=== PATIENT | female | born 1995 | race Caucasian/White ===

== ENCOUNTER → 2024-06-09 13:52 | Outpatient (REF) | payer BC, SELFPAY | LOC: PNTC 13:52 | PROVIDERS: ATTENDING PHYSICIAN Obstetrics & Gynecology | DX: Z36.0 Encounter for antenatal screening for chromosomal anomalies (principal); Z36.82 Encounter for antenatal screening for nuchal translucency | CPT/HCPCS: 76801; 76813 ==

== ENCOUNTER → 2024-07-07 13:27 | Outpatient (REF) | payer BC, SELFPAY | LOC: PNTC 13:27 | PROVIDERS: ATTENDING PHYSICIAN Obstetrics & Gynecology | DX: O99.210 Obesity complicating pregnancy, unspecified trimester (principal) | CPT/HCPCS: 76805 ==

== ENCOUNTER → 2024-08-03 13:27 | Outpatient (REF) | payer BC, SELFPAY | LOC: PNTC 13:27 | PROVIDERS: ATTENDING PHYSICIAN Obstetrics & Gynecology | DX: O99.212 Obesity complicating pregnancy, second trimester (principal); Z36.3 Encounter for antenatal screening for malformations | CPT/HCPCS: 76811; 76817 ==

== ENCOUNTER → 2024-08-07 09:59 | Outpatient (REF) | payer BC, SELFPAY | LOC: RCS 09:59 | PROVIDERS: ATTENDING PHYSICIAN Internal Medicine Cardiovascular Disease; FAMILY PHYSICIAN Nurse Practitioner Adult Health | DX: R00.2 Palpitations (principal) | CPT/HCPCS: 93306 ==

== ENCOUNTER 2024-10-08 15:11 | Inpatient (IN) | payer BC, SELFPAY ==
[2024-10-08] VITALS (8 sets, daily range): BP systolic 102–150; BP diastolic 53–93; BMI 36.5; BMI 33.0
--- NOTE | 2024-10-08 09:18 | ED.GENMED ---
History of Present Illness
<Veronique Chavis MD, Resident - Last Filed: 10/08/24 15:35>
General
Chief Complaint: Breathing Problem
Source: patient and family
Exam Limitations: none
Time Seen by Provider: 10/08/24 09:03
Nursing documentation reviewed up to this point in time: agreed with
History of Present Illness
History of Present Illness:
Ms. Leonarda Koroma is a P2 29-year-old female at 30 weeks gestation with a PMH notable for asthma, anxiety, IBS, GERD, and prophylactic cholecystectomy, who is presenting with shortness of breath, cough, and upper abdominal pain for 11 days.
Since September 28 she started feeling short of breath and and it has increased despite increased use of her rescue inhaler. She usually does not need her rescue inhaler. The shortness of breath is constant including when she is resting/sitting. Now
she sleeps with multiple pillows. She did not develop shortness of breath with her prior 2 pregnancies, only receiving a breathing treatment during a delivery.
She started coughing a few days ago, productive of yellow sputum. She was in contact with her [id number] who had a cough a few days before that. 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
She denies fevers or chills
She developed pain in the epigastric region above her gravid uterus that radiate bilaterally. The the abdominal pain is exacerbated by her coughing, and lingers after bouts of coughing. She has vomited 2-3 times a day after coughing. He denies
hematemesis.
She endorses calf cramps but no unilateral leg swelling or pain. She recalls she was concerned for a DVT in May, and there was no DVT found on workup.
She denies vaginal bleeding and endorses normal movement. She was concerned about her anterior placenta, and we reassured her that it is not a danger to the fetus.
Past History
<Veronique Chavis MD, Resident - Last Filed: 10/08/24 15:35>
Past History
ED Past Medical History: Asthma and Other (IBS, migraines)
ED Past Surgical History: Cholecystectomy and Other (wisdom teeth)
Social History
Tobacco: Non-smoker
Alcohol: Occasional
Drug: None
Personal: Single
Living: with family
Employment: Employed
Family History
Family History: Negative Diabetes
Review of Systems
<Veronique Chavis MD, Resident - Last Filed: 10/08/24 15:35>
Review of Systems
All Other Systems: ROS reviewed and negative except as documented in HPI and ROS
Phy Exam
<Veronique Chavis MD, Resident - Last Filed: 10/08/24 15:35>
Physical Exam
Physical Exam:
Lungs: Diffuse wheezes in all lung boyd, breathlessness with talking, wet cough
Heart: Tachycardic, normal rhythm
Abdomen: Tenderness to palpation in the right upper quadrant, no CVA tenderness bilaterally
Extremities: No pedal edema, no palpable cords
General: Moist mucous membranes
Course
<Veronique Chavis MD, Resident - Last Filed: 10/08/24 15:35>
Orders/Labs/Results
Orders:
Orders
10/08/24 09:15
Metoclopramide [Reglan] 10 mg IV NOW STA
10/08/24 09:18
Diphenhydramine [Benadryl] 25 mg IV NOW STA
10/08/24 10:11
Ipratropium/Albuterol Sulfate [Duoneb] 3 ml INH R NOW STA
10/08/24 10:13
Dexamethasone [Decadron] 10 mg PO NOW STA
10/08/24 10:14
0.9% Sodium Chloride 1000 ml [Nss] 1,000 ml IV BOLUS
10/08/24 10:15
Ipratropium/Albuterol Sulfate [Duoneb] 3 ml INH R NOW STA
Ipratropium/Albuterol Sulfate [Duoneb] 3 ml INH R NOW STA
10/08/24 11:10
Dexamethasone Pf [Decadron] 10 mg .ROUTE .STK-MED ONE
10/08/24 11:12
Dexamethasone Sod Phosphate [Decadron] 20 mg .ROUTE .STK-MED ONE
10/08/24 11:13
Dexamethasone Sod Phosphate [Decadron] 10 mg IV NOW STA
10/08/24 13:27
Urinalysis Reflex To Culture Urgent
10/08/24 14:09
COVID-19 Antigen Urgent
Source: Nasal Swab
Complete Blood Count/With Diff Urgent
Comprehensive Metabolic Panel Urgent
10/08/24 14:30
Admit/Transfer Patient As Directed
Co-Sign Provider:
Level of Care: Inpatient admission
Assign to:: Telemetry
Physician / Group: Braeden
Diagnosis: Acute Asthma Exacerbation
Reason for Telemetry: Arrhythmia
Date to Stop Telemetry: 10/11/24
Time to Stop Telemetry: 11:00
Reason for Hospitalization: steroids, nebs
Expected length of stay greater than two midnights?: Yes
ELOS- Estimated Length of Stay in days: 3
I certify the patient meets the requirements for IP care: Yes
PRN Pain Medication Management As Directed
May give lesser potent ordered pain med per pt: Yes
preference::
Protocol:: Medication orders for pain may be administered in a
manner that supports deferring to patient preference
when the pt is:
- Requesting an ordered lesser potent pain medication.
Least to most potent pain medications are defined
as: acetaminophen < NSAID < tramadol < opioids
(morphine, oxycodone, hydromorphone).
- Requesting a lesser dose of the same medication IF
ORDERED.
- Requesting a less intrusive route of administration
if both routes are prescribed by the provider (PO <
IV).
10/08/24 14:31
Code Status As Directed
Resuscitation Status: Full Code
10/08/24 14:37
US Limited Routine
Reason For Exam: Growth scan, Asthma Exacerbation
EDC?: 12/21/24
10/11/24 11:00
DC Protocol for Telemetry ONCE
Abnormal Lab Results
10/08/24
14:09
WBC 13.7 H 10^3/uL
(4.8-10.8)
RBC 3.66 L 10^6/uL
(4.20-5.40)
Hgb 11.1 L g/dL
(12.0-16.0)
Hct 32.4 L %
(37.0-47.0)
Abs Immat Gran (auto) 0.2 H 10^3/uL
(0-0.05)
Absolute Neuts (auto) 10.7 H 10^3/uL
(1.4-6.5)
Absolute Monos (auto) 0.9 H 10^3/uL
(0.1-0.6)
Immature Gran % 1.5 H %
(0-0.5)
Neutrophils % 77.6 H %
(42.2-75.2)
Lymphocytes % 10.9 L %
(20.5-51.1)
Chloride 108 H mmol/L
(98-107)
Carbon Dioxide 20 L mmol/L
(22-30)
Creatinine 0.4 L mg/dL
(0.6-1.0)
Glucose 60 L mg/dl
(70-99)
10/08/24 14:09
10/08/24 14:09
Vital Signs
Initial and Last Documented VS:
Initial Vital Signs
Temp Pulse Resp BP Pulse Ox
98.2 F 117 18 150/93 98
10/08/24 08:58 10/08/24 08:58 10/08/24 08:58 10/08/24 08:58 10/08/24 08:58
Last Documented Vital Signs
Temp Pulse Resp BP Pulse Ox
98.2 F 129 18 121/71 96
10/08/24 08:58 10/08/24 15:00 10/08/24 15:00 10/08/24 15:00 10/08/24 15:00
<Beto Juan, - Last Filed: 10/08/24 13:57>
Orders/Labs/Results
Orders:
Orders
10/08/24 09:15
Metoclopramide [Reglan] 10 mg IV NOW STA
10/08/24 09:18
Diphenhydramine [Benadryl] 25 mg IV NOW STA
10/08/24 10:11
Ipratropium/Albuterol Sulfate [Duoneb] 3 ml INH R NOW STA
10/08/24 10:13
Dexamethasone [Decadron] 10 mg PO NOW STA
10/08/24 10:14
0.9% Sodium Chloride 1000 ml [Nss] 1,000 ml IV BOLUS
10/08/24 10:15
Ipratropium/Albuterol Sulfate [Duoneb] 3 ml INH R NOW STA
Ipratropium/Albuterol Sulfate [Duoneb] 3 ml INH R NOW STA
10/08/24 11:10
Dexamethasone Pf [Decadron] 10 mg .ROUTE .STK-MED ONE
10/08/24 11:12
Dexamethasone Sod Phosphate [Decadron] 20 mg .ROUTE .STK-MED ONE
10/08/24 11:13
Dexamethasone Sod Phosphate [Decadron] 10 mg IV NOW STA
10/08/24 13:27
Urinalysis Reflex To Culture Urgent
10/08/24 14:09
COVID-19 Antigen Urgent
Source: Nasal Swab
Complete Blood Count/With Diff Urgent
Comprehensive Metabolic Panel Urgent
10/08/24 14:30
Admit/Transfer Patient As Directed
Co-Sign Provider:
Level of Care: Inpatient admission
Assign to:: Telemetry
Physician / Group: [facility]
Diagnosis: Acute Asthma Exacerbation
Reason for Telemetry: Arrhythmia
Date to Stop Telemetry: 10/11/24
Time to Stop Telemetry: 11:00
Reason for Hospitalization: steroids, nebs
Expected length of stay greater than two midnights?: Yes
ELOS- Estimated Length of Stay in days: 3
I certify the patient meets the requirements for IP care: Yes
PRN Pain Medication Management As Directed
May give lesser potent ordered pain med per pt: Yes
preference::
Protocol:: Medication orders for pain may be administered in a
manner that supports deferring to patient preference
when the pt is:
- Requesting an ordered lesser potent pain medication.
Least to most potent pain medications are defined
as: acetaminophen < NSAID < tramadol < opioids
(morphine, oxycodone, hydromorphone).
- Requesting a lesser dose of the same medication IF
ORDERED.
- Requesting a less intrusive route of administration
if both routes are prescribed by the provider (PO <
IV).
10/08/24 14:31
Code Status As Directed
Resuscitation Status: Full Code
10/08/24 14:37
US Limited Routine
Reason For Exam: Growth scan, Asthma Exacerbation
EDC?: 12/21/24
10/11/24 11:00
DC Protocol for Telemetry ONCE
Abnormal Lab Results
10/08/24
14:09
WBC 13.7 H 10^3/uL
(4.8-10.8)
RBC 3.66 L 10^6/uL
(4.20-5.40)
Hgb 11.1 L g/dL
(12.0-16.0)
Hct 32.4 L %
(37.0-47.0)
Abs Immat Gran (auto) 0.2 H 10^3/uL
(0-0.05)
Absolute Neuts (auto) 10.7 H 10^3/uL
(1.4-6.5)
Absolute Monos (auto) 0.9 H 10^3/uL
(0.1-0.6)
Immature Gran % 1.5 H %
(0-0.5)
Neutrophils % 77.6 H %
(42.2-75.2)
Lymphocytes % 10.9 L %
(20.5-51.1)
Chloride 108 H mmol/L
(98-107)
Carbon Dioxide 20 L mmol/L
(22-30)
Creatinine 0.4 L mg/dL
(0.6-1.0)
Glucose 60 L mg/dl
(70-99)
10/08/24 14:09
10/08/24 14:09
Vital Signs
Initial and Last Documented VS:
Initial Vital Signs
Temp Pulse Resp BP Pulse Ox
98.2 F 117 18 150/93 98
10/08/24 08:58 10/08/24 08:58 10/08/24 08:58 10/08/24 08:58 10/08/24 08:58
Last Documented Vital Signs
Temp Pulse Resp BP Pulse Ox
98.2 F 129 18 121/71 96
10/08/24 08:58 10/08/24 15:00 10/08/24 15:00 10/08/24 15:00 10/08/24 15:00
<Veronique Chavis MD, Resident - Last Filed: 10/08/24 15:35>
MDM/Problems Addressed
Differential Diagnosis Includes:
Shortness of breath:
Asthma exacerbation
PE
URI
Right upper quadrant pain:
Musculoskeletal strain associated with coughing
Appendicitis
MDM/Problems Addressed:
Hour-long breathing treatment with DuoNebs
Decadron 10 mg
monitoring with L&D
IV fluids
<Veronique Chavis MD, Resident - Last Filed: 10/08/24 15:35>
*Pulse Oximetry
SaO2: 98
Oxygen Mode of Delivery: Room air
*Floral [employer]er Interpretation
Rate: tachycardiac
Interpretation: normal
Rhythm: sinus
*Critical Care Note
Total Time (30-74mins, 75-104mins- exclusive of procedures): Not Applicable
<Beto Juan DO - Last Filed: 10/08/24 13:57>
*Pulse Oximetry
Patient hypoxic: no
ED Attending Note
<Veronique Chavis MD, Resident - Last Filed: 10/08/24 15:35>
-
Portions of this chart may have been created with voice recognition software.� Occasional wrong word or��sound alike� substitutions may have occurred due to the inherent limitations of voice recognition software.
<Beto Juan DO - Last Filed: 10/08/24 13:57>
ED Attending Note
Patient seen and examined by attending physician: Yes
I performed a history and physical exam of patient and discussed management with resident, I reviewed resident's note and agree with documented findings and plan of care.: Yes
ED Attending Note:
Note:
CHIEF COMPLAINT(S)
Difficulty breathing and stabbing abdominal pain with cough.
HISTORY OF PRESENT ILLNESS
The patient is a 29-year-old female who is experiencing difficulty breathing and stabbing pain in the right upper quadrant of the abdomen. She reports that these symptoms began recently and have been progressively worsening. The pain started as a
cough but now persists beyond the act of coughing and worsens with coughing. The patient describes the pain as being similar to being stabbed, located in the upper abdomen, and present even at rest. She denies any fever, hemoptysis, or chest pain
but reports that her asthma symptoms are not controlled with her current inhaler use, which provides relief for only an hour to an hour and a half. She also reports that her condition is reminiscent of her asthma, but with an increased frequency of
inhaler use. The patient is currently and mentions that this is her third .
The patient is concerned about the location of her placenta, having never experienced an anterior placenta before. She has had no bleeding, per vaginal discharge, or uterine contractions, and describes normal movements. Past issues with
pregnancies included receiving an epidural treatment during delivery.
The patient wears compression stockings and notes trace lower extremity edema. She expresses difficulty in getting full lung expansion. She also denies any smoking history.
PHYSICAL EXAM
General: Alert, no acute distress.
Skin: Warm, dry.
Head: Normocephalic, atraumatic.
Neck: Supple, trachea midline.
Eyes, Ears, Nose, Mouth, and Throat: Oral mucosa moist.
Cardiovascular: Regular rhythm, normal heart sounds.
Respiratory: Bilateral wheezing noted, but respiratory sounds are equal on both sides.
Gastrointestinal: Gravid uterus above the umbilicus, slight tenderness in the right upper quadrant but no acute distress on palpation.
Musculoskeletal: No negative Homans sign or palpable cords.
Neurological: Alert and oriented to person, place, time, and situation, No focal neurological deficit observed.
Psychiatric: Cooperative, appropriate mood and affect.
PLAN
1. Administer a series of breathing treatments to alleviate respiratory symptoms.
2. Prescribe corticosteroids to address airway inflammation.
3. Conduct monitoring to assess the heart rate and movement.
4. Consider administering intravenous fluids to assist with hydration.
5. Monitor improvement in breathing and overall well-being; connect with Obstetrics (OB) team as required.
6. Reassess treatment efficacy and symptoms; escalate care if there is no improvement.
DIFFERENTIAL DIAGNOSIS
The Differential Diagnosis includes, in no particular order and is not limited to:
1. Asthma exacerbation
2. Pulmonary embolism
3. Gastroesophageal reflux disease (GERD)
4. Costochondritis
5. Pneumonia
6. -related respiratory changes
7. Rib fracture or muscle strain
8. Bronchitis
9. Pleuritis
10. Anxiety-induced dyspnea
CARE-UPDATE
10/08/24 - 13:27
Patient continues to experience tachycardia and wheezing with no significant improvement reported. Steroids anticipated to provide relief with time. Decision made to admit for observation due to ongoing symptoms and patient history. Notifications to
OB and hospitalists initiated. Laboratory tests ordered for further evaluation.
Disposition:
SUMMARY OF ENCOUNTER
The patient, a 29-year-old female, presented to the emergency department with difficulty breathing and stabbing abdominal pain localized to the right upper quadrant. She reports the pain started with a cough and has progressively worsened.
Her current inhaler use for asthma is insufficient, providing relief for only an hour to an hour and a half. The patient presents with wheezing and tachycardia. Although the patient does not experience much improvement in symptoms despite initial
treatment, it is anticipated that as the effects of the steroids begin, her condition will improve. However, due to ongoing symptoms, she is being admitted for further observation and continued management with bronchodilators and corticosteroids. I
do not suspect pulmonary embolism given the fact that she is wheezing. the patient does not exhibit signs of preeclampsia. Obstetrics was consulted, with monitoring conducted, showing reassurance. The abdominal pain is suspected to result from
coughing, with no acute obstetrical complaints.
DISPOSITION
Admit
ASSESSMENT
1. Asthma exacerbation in the context of . 2. Abdominal pain likely due to coughing.
MANAGEMENT OF THE PATIENTS CARE WAS DISCUSSED WITH
Case was discussed with the Obstetrics team, who will follow the patient during her admission.
INDEPENDENT REVIEW OF LABS AND INTERPRETATION OF TESTS
My independent review of the patients condition leads me to anticipate improvement with continued steroid treatment and bronchodilation therapy.
MEDICAL DECISION MAKING
-Complexity of Data Reviewed: Chronic conditions affecting care include asthma and . Differential diagnosis considered was asthma exacerbation, pulmonary embolism, -related respiratory changes, and costochondritis.
-Data:
Category 3
Discussion of management with the Obstetrics team has been documented.
DIAGNOSIS
1. Asthma exacerbation (J45.901)
2. Cough-induced abdominal pain (R07.82)
Discharge Plan
Departure
Patient Disposition: Admit
Date of Disposition: 10/08/24
Time of Disposition: 13:31
Admit to: Med/Surg
Presentation/result/management discussed w/ accepting MD/DO: Hospitalist
Discharge Problem:
Acute asthma exacerbation, Third trimester
Interventions
Interventions:
*Risk Screen - Suicide Last Done: 10/08/24 08:58
*General Assessment Last Done: 10/08/24 11:14
*Neglect/Abuse Screening Last Done: 10/08/24 08:58
*ED- Fall Risk Assessment Last Done: 10/08/24 11:14
*ED COVID-19 Vaccine History Last Done: 10/08/24 11:14
ED- Cardiac Assessment Last Done: 10/08/24 10:00
ED- Pulmonary Assessment Last Done: 10/08/24 10:00
[2024-10-08] MEDS: NSS 1000 IV (10:51)
[2024-10-08] MEDS: DUONEB 3 ML INH ×5 (10:52→22:52)
[2024-10-08] MEDS: DECADRON 10 MG IV (11:13)
--- NOTE | 2024-10-08 14:10 | HPS.HSE ---
Family Physician
-
Family Physician: Yadira Lozano
Chief Complaint
-
Cough
History of Present Illness
Patient is a 29 y/o female past medical history of exercise-induced asthma, migraine headaches and GERD who presents with cough and shortness of breath. Patient reports ongoing symptoms for about 10 days. She has been using her rescue inhaler at
home but reports persistent shortness of breath. She reports cough is occasionally productive of yellow sputum. She reports not being able to sleep and she has been using multiple pillows to sit upright. She denies lower extremity edema. She
denies fevers.
Medical History
Past Medical History
Past Medical History: Reports Other
Additional Past Medical History:
Exercise-Induced Asthma
Migraine Headache
GERD
Irritable Bowel Syndrome
Past Surgical History: Reports Other
Additional Past Surgical History:
Cholecystectomy
[employer] [place] Teeth Extraction
Social History
Tobacco: Non-smoker
Alcohol: None
Family History
Family History: Not pertinent
Allergies / Home Medications
Allergies reflects when Allergies were last updated in [facility].
Home Medications with original date entered in [facility]
Allergy/Medication List:
Allergies
Allergy/AdvReac Type Severity Reaction Status Date / Time
No Known Drug Allergies Allergy Unknown Verified 10/08/24 09:01
Home Medications
albuterol sulfate 90 mcg/actuation aerosol inhaler 2 puff inhalation R [id number] PRN sob 10/08/24
aspirin 81 mg tablet 81 mg PO DAILY 10/08/24
Review of Systems
-
A 12 point ROS was completed and negative except as noted: Yes
Constitutional: Denies Fever or Chills
Respiratory: Reports See HPI
Physical Exam
Vital Signs
Vital Signs
Temp Pulse Resp BP Pulse Ox
98.2 F 107 17 113/73 97
10/08/24 08:58 10/08/24 11:15 10/08/24 11:15 10/08/24 11:14 10/08/24 11:15
Physical Exam
General: Comfortable, Conversant and Other (Frequent cough)
HEENT: Anicteric and Moist mucous membranes
Respiratory: Other (Diffuse wheezing and rhonchi)
Cardiac: S1/S2, Regular Rhythm and Tachycardia
GI: Soft and Other (Gravid uterus )
Rectal: Deferred by Provider
Musculoskeletal: No Clubbing, No Cyanosis and No Edema
Skin: Warm and Dry
Neuro: Awake, Alert, Oriented and Nonfocal/grossly intact
Psych: Calm
Laboratory Results
-
Laboratory Tests
10/08/24
14:09
WBC 13.7 H
Hgb 11.1 L
Hct 32.4 L
Plt Count 280
Sodium 136
Potassium 3.9
Chloride 108 H
Carbon Dioxide 20 L
BUN 7
Creatinine 0.4 L
Glucose 60 L
Data Reviewed
-
Lab Data: Labs Reviewed by me
Impression/Plan
-
Acute Asthma Exacerbation
-Check COVID swab
-Check CXR in setting of leukocytosis
-Continue Decadron 4mg IV Q12H
-Continue DuoNeb QID and PRN
-Continue Mucinex
Third Trimester
-Patient reports history of preeclampsia with prior pregnancies - Continue aspirin
-Consult OB
Mild Normocytic Anemia
-Start Vitamin with Iron
DVT proph: SC Heparin
Code Status: Full Code
[2024-10-08 14:25] LABS: Hematocrit 32.4 % (37.0-47.0); Hemoglobin 11.1 g/dL (12.0-16.0); Mean Corp Hgb Conc. 34.3 g/dL (33.0-37.0); Mean Corpuscular Volume 88.5 fL (81.0-99.0); Nucleated Red Blood Cells % 0 %; Platelet Count 280 10^3/uL (130-400); Red Cell Dist. Width 12.7 % (11.5-14.5)
[2024-10-08 14:42] LABS: ALT (SGPT) 18 U/L (0-35); AST (SGOT) 26 U/L (14-36); Albumin 3.7 g/dl (3.5-5.0); Alkaline Phosphatase 126 U/L (38-126); Blood Urea Nitrogen 7 mg/dl (7-17); Calcium 8.6 mg/dl (8.4-10.2); Carbon Dioxide 20 mmol/L (22-30); Chloride 108 mmol/L (98-107); Estimated Creatinine Clearance > 125 ml/min; Glucose 60 mg/dl (70-99); Potassium 3.9 mmol/L (3.5-5.1); Sodium 136 mmol/L (135-145); Total Protein 6.7 g/dl (6.3-8.2); eGFR > 60.00
--- NOTE | 2024-10-08 14:53 | CM ---
CM reviewed chart and met with pt bedside in ED. Lives with and children in 3 story home, several [place].
Independent in ADLs, personal care and ambulation at baseline. 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
PCP: Yadira Lozano
Pharmacy: [facility] Margarita Jhaveri
CM will continue to follow for discharge planning needs
[2024-10-08 17:04] LABS: Glucose - Point of Care 125 mg/dl (70-99)
--- NOTE | 2024-10-08 17:20 | CON.MD ---
Consultation - Medical
-
29yo @ 29.3wks [facility] 12/21/24 presented to the ER at the request of my office due to c/o RUQ pain and Cough/SOB requiring regular use of her rescue inhaler, 10+ times in a 24hr period. She states she has noticed progressively worsening symptoms
for over a week, to the point where she needed multiple pillows when she lies down due to SOB. The RUQ pain is associated with/exacerbated by her coughing. She denies Vb/LOF/Ctx, +FM.
Issues: 1. BMI 31 2. h/o PEC x2
PMHx: h/o MRSA, Obesity, Asthma, EBV @ 14y/o
PSHx:Cholecystectomy, D&C
POBHx: 08/2011: FT - PEC, 03/2017: FT - PEC, PPH
FHx: Dad- DM, Multiple Myeloma, Porphyria Sister-asthma
SHX: Neg x3
Meds: Baby ASA, Albuterol inhaler
All: NKDA
Vitals & Labs: see Below
Gen: nad, sitting up in bed, coughing intermittently
Abd: soft, nd, mild ttp in the mid right abdomen, gravid
FHT: 140/Mod/+A/-D
TOCO: no ctx
US 10/08/24: Single intrauterine in cephalic presentation. No evidence for placenta previa. The cervix appears long and closed. Amniotic fluid volume is within normal limits.
heart rate of 134 bpm.
measurements give an estimated gestational age of 30 weeks and 5 days, +/- 3 weeks. LMP percentile is 70%.
CXR: No focal consolidation, pleural effusion, or pneumothorax. The cardiomediastinal silhouette is normal. The osseous structures are unremarkable.
A/P: 29yo @ 29.3wks with Asthma Exacerbation
1. Asthma:- s/p Nebulizer treatment in ER however patient remains symptomatic so decision was made to admit
-CXR without evidence of pneumonia
-Mgmt per Hospitalist Team
2. OB: Reassuring FHT in the ER
-will do NSTs Q shift while admitted
-Growth US today showing appropriate measurements
-okay with nebulizer treatment and Dexamethasone
Consultation
-
Date/Time Consultation Requested: 10/08/24
Date/Time Consultation Performed: 10/08/24
Requesting Provider: Nathan Provider
Performing Provider: Omalley
Reason for Consultation: , asthma exacerbation
Vital Signs / Labs
-
Vital Signs and Labs:
Temp Pulse Resp BP Pulse Ox
98.7 F 133 18 115/84 96
10/08/24 17:13 10/08/24 17:13 10/08/24 17:13 10/08/24 17:13 10/08/24 17:13
10/08/24 14:09
10/08/24 14:09
AST/ALT: 18
10/08/24 10/08/24
14:09 16:59
WBC 13.7 H
RBC 3.66 L
Hgb 11.1 L
Hct 32.4 L
Abs Immat Gran (auto) 0.2 H
Absolute Neuts (auto) 10.7 H
Absolute Monos (auto) 0.9 H
Immature Gran % 1.5 H
Neutrophils % 77.6 H
Lymphocytes % 10.9 L
Chloride 108 H
Carbon Dioxide 20 L
Creatinine 0.4 L
Glucose 60 L
POC Glucose 125 H
COVID: NEG
[2024-10-08 17:27] LABS: COVID-19 Antigen Negative (Negative)
--- NOTE | 2024-10-08 18:05 | PTCARENOTE ---
1706 Pt received from ED via stretcher AAOX3. Pt accompanied by her mother. Pt ambulated from stretcher to standing scale and then bed.
[2024-10-08] MEDS: DUONEB INH (18:10)
--- NOTE | 2024-10-08 18:10 | W.PN.UPDATE ---
Update Note
Progress Note Update
I have seen and examined the patient.
I discussed the patient with the COUNTER STITCHER or PA's, their note was reviewed and I agree with the note.
This is a 29F, who is 30 weeks with a known history of asthma and GERD presenting with progressively worsening shortness of breath for the last 10 days, and cough productive of yellow sputum.
She noted swollen cervical lymph nodes about 2 weeks ago which has since resolved. She denies fevers. Her mother is at bedside and notes that she has had multiple upper respiratory issues in the last several months which have resolved on their
own. She also notes that she has had tachycardia since early in her and had a echocardiogram as an outpatient which was unremarkable.
On exam she is tachycardic to 135, she is well-appearing but exhibits conversational dyspnea, and occasional coughing, she has no swollen cervical lymph nodes, and tonsils appear normal, her lungs are wheezy and rhonchorous bilaterally. She has no
tenderness on my abdominal exam, has a gravid uterus. She has no lower extremity edema.
Labs were reviewed by me and are remarkable for an elevated white count of 13.7. Chest x-ray was reviewed by me and discussed with the radiologist and there appears to be some possible right-sided pneumonitis or pneumonia at the base.
Assessment and plan:
Acute asthma exacerbation�patient is not improved after nebs and steroids in the ED. We will continue Decadron and nebs. Given recurrent issues patient could potentially benefit from outpatient pulmonology eval.
Productive Cough - given white count and appearance of CXR, consider pneumonia or pneumonitis. COVID swab negative. Sputum is minimal so will hold off culture, but check strep and legionella. Empiric azithromycin. If she worsens will repeat CXR.
Due to will avoid CT but low suspicion for PE.
Tachycardia-likely worse in setting of acute illness. Previous echo unremarkable. If not improved with treatment can consider repeat echo.
Appreciate OB assistance.
Pt declines DVT ppx with subq heparin. Will place SCDs.
Comment:
[2024-10-08] MEDS: ZITHROMAX 500 MG PO (18:26)
[2024-10-08 19:58] LABS: Urine Character Clear (Clear)
[2024-10-08 20:16] LABS: Urine Red Blood Cell 0-2 /HPF (0-2); Urine Squamous Cell >30 /LPF (Few)
[2024-10-08] MEDS: MUCINEX 600 MG PO (20:48)
[2024-10-08] MEDS: TUMS CHEWABLE TABLET 400 MG PO (20:48)
--- NOTE | 2024-10-08 21:36 | PTCARENOTE ---
NST completed and printed. Baseline 125 BPM with accelerations, no contractions. C/o right upper side quadrant pain but said it has improved since coughing has subsided a bit but still present. made aware. No new orders at this time.
[2024-10-08] MEDS: DECADRON 4 MG IV (22:36)
[2024-10-09 03:06] VITALS: BP 102/64
[2024-10-09 06:41] LABS: Hematocrit 29.8 % (37.0-47.0); Hemoglobin 10.2 g/dL (12.0-16.0); Mean Corp Hgb Conc. 34.2 g/dL (33.0-37.0); Mean Corpuscular Volume 88.4 fL (81.0-99.0); Platelet Count 251 10^3/uL (130-400); Red Cell Dist. Width 12.6 % (11.5-14.5)
[2024-10-09 07:02] LABS: Blood Urea Nitrogen 6 mg/dl (7-17); Calcium 8.9 mg/dl (8.4-10.2); Carbon Dioxide 20 mmol/L (22-30); Chloride 110 mmol/L (98-107); Estimated Creatinine Clearance > 125 ml/min; Glucose 105 mg/dl (70-99); Potassium 4.4 mmol/L (3.5-5.1); Sodium 137 mmol/L (135-145); eGFR > 60.00
[2024-10-09] MEDS: DUONEB 3 ML INH ×4 (07:21→19:33)
[2024-10-09] MEDS: ASPIR LOW (ENTERIC COATED) 81 MG PO (07:45)
[2024-10-09] MEDS: PRENATAL PLUS 1 TABLET PO (07:45)
[2024-10-09] MEDS: MUCINEX 600 MG PO ×2 (07:45→21:37)
[2024-10-09 07:52] VITALS: BP 107/69
[2024-10-09] MEDS: DECADRON 4 MG IV ×2 (09:54→21:39)
[2024-10-09] MEDS: FLUSH (NSS) 2 FLUSH IV (09:56)
[2024-10-09 11:19] VITALS: BP 105/62
[2024-10-09 12:00] VITALS: BMI 33.1
--- NOTE | 2024-10-09 13:11 | W.PN.HOSP.TC ---
Today's Communication/Plan
-
routine EKG
maintain on steroids/neb therapy
continue abx
Assessment / Plan
Assessment / Plan
1. Acute asthma exacerbation
- Patient continues to have wheezing and dyspnea
- Maintain on IV Solu-Medrol 40 mg every 12 hours
- Continue on DuoNeb therapy
2. Possible pneumonitis/right lower lobe pneumonia
- Have nonproductive cough, which can also be present an asthma flare
- Maintained on azithromycin 500 mg daily -safe to take in third trimester
- Worsening leukocytosis likely from steroid use
3. Sinus tachycardia
- Combination of /inhaler therapy/possible pneumonia.
- VTE/PE in differential but have other explanation at this juncture. D-dimer of no benefit in
- Routine EKG ordered
- Blood pressure soft and cannot provide beta-blockade. Labetalol and metoprolol safer option if needed
4. Normocytic anemia
- close to baseline, monitor
5. NAG metabolic acidosis
- suspecting compensatory to resp alkalosis form /asthma flare up
- will check ABG if worsening
DVT PPX -heparin subq
Full code
Total time spent : 54 mins
Anticipated Discharge: 24 - 48 hours
Subjective/Interval History
-
Date of Service: October 09, 2024
continues to have shortness breath
not hypoxic
patient having fast heart rate and have some palpitation
Objective Data
-
Labs:
Laboratory Results
10/09/24
06:09
WBC 18.2 H
Hgb 10.2 L
Hct 29.8 L
Plt Count 251
Sodium 137
Potassium 4.4
Chloride 110 H
Carbon Dioxide 20 L
BUN 6 L
Creatinine 0.4 L
Glucose 105 H
Calcium 8.9
Vital Signs:
Vital Signs
Temp Pulse Resp BP Pulse Ox
98.5 F 122 17 105/62 99
10/09/24 11:19 10/09/24 11:19 10/09/24 11:19 10/09/24 11:19 10/09/24 11:19
I&O
10/08/24 10/09/24 10/10/24
06:59 06:59 06:59
Intake Total 0 / 2279
Balance 2279 / 2279
Review of Systems
-
Respiratory: Reports Trouble Breathing
Cardiac: Reports Palpitations
Abdomen/GI: Reports No Symptoms
Physical Exam
-
General: No Apparent Distress and Comfortable
HEENT: Negative Oxygen
Respiratory: Wheezes
Cardiac: Regular Rhythm, S1/S2 and Tachycardic; Negative Murmur or Rub
Musculoskeletal: No Edema
Neuro: Awake, Alert, Oriented, No Motor Deficits and Nonfocal/Grossly Intact
Psych: Calm
--- NOTE | 2024-10-09 14:17 | PTCARENOTE ---
NST at bedside. FHR 145 with +accelerations. Pt reports good movement. Denies contractions. Pt still c/o RUQ pain when coughing but states it is improving.
[2024-10-09 15:25] VITALS: BP 105/60
[2024-10-09] MEDS: ZITHROMAX 500 MG PO (17:30)
[2024-10-09 19:00] VITALS: BP 105/64
[2024-10-09] MEDS: TUMS CHEWABLE TABLET 400 MG PO (21:36)
--- NOTE | 2024-10-09 22:47 | W.PN.OBG.DWH ---
Today's Communication / Plan
-
cont steroids, abx
testing
asthma care per hospitalist
Assessment/Plan
-
29+ wks with asthma exacerbation-mgmt per hospitalist.
-on steroids, augmentin in case this is pneumonia
-reactive NST
Cont present care
Subjective Data
-
Pt was not able to be seen until this evening due to being involved in direct patient care for multiple urgent issues/deliveries on Labor and delivery unit throughout the day.
Pt seen and examined approx 10pm. Late entry note
Feeling like she is breathing better. HAs cough and muscular pain in upper abdomen when coughing.
Active mvmt
No other complaints. Denies fever.
Objective Data
-
Laboratory Results
10/09/24 06:09
10/09/24 06:09
Vital Signs
Temp Pulse Resp BP Pulse Ox
97.8 F 124 20 105/64 98
10/09/24 19:00 10/09/24 19:35 10/09/24 19:35 10/09/24 19:00 10/09/24 19:35
VSS afeb
cor regular rate
pulm: clear no R/R W
abd:soft NDNT fundus firm NT
ext no calf pain
--- NOTE | 2024-10-09 22:48 | PTCARENOTE ---
Dr. Hodges came to bedside to assess patient. Qshift NST completed, printed, and reviewed by MD. FHR 135 BPM with accelerations, no contractions.
[2024-10-09 23:00] VITALS: BP 106/63
[2024-10-10 03:35] VITALS: BP 101/57
[2024-10-10 04:43] LABS: Hematocrit 28.7 % (37.0-47.0); Hemoglobin 9.8 g/dL (12.0-16.0); Mean Corp Hgb Conc. 34.1 g/dL (33.0-37.0); Mean Corpuscular Volume 89.1 fL (81.0-99.0); Platelet Count 259 10^3/uL (130-400); Red Cell Dist. Width 12.6 % (11.5-14.5)
[2024-10-10 05:07] LABS: Blood Urea Nitrogen 7 mg/dl (7-17); Calcium 8.8 mg/dl (8.4-10.2); Carbon Dioxide 19 mmol/L (22-30); Chloride 110 mmol/L (98-107); Estimated Creatinine Clearance > 125 ml/min; Glucose 125 mg/dl (70-99); Potassium 4.2 mmol/L (3.5-5.1); Sodium 136 mmol/L (135-145); eGFR > 60.00
[2024-10-10 06:00] VITALS: BMI 33.0
[2024-10-10 07:00] VITALS: BP 110/71
[2024-10-10] MEDS: DUONEB 3 ML INH ×4 (07:25→20:24)
[2024-10-10] MEDS: MUCINEX 600 MG PO ×2 (07:47→20:46)
[2024-10-10] MEDS: PRENATAL PLUS 1 TABLET PO (07:47)
[2024-10-10] MEDS: ASPIR LOW (ENTERIC COATED) 81 MG PO (07:47)
[2024-10-10] MEDS: DECADRON 4 MG IV ×2 (10:21→22:31)
[2024-10-10] MEDS: ROBITUSSIN DM 10 ML PO (10:46)
[2024-10-10 11:00] VITALS: BP 124/77
--- NOTE | 2024-10-10 12:46 | W.PN.HOSP.TC ---
Today's Communication/Plan
-
Maintained on steroids
Robitussin for cough
Continue antibiotic
Assessment / Plan
Assessment / Plan
1. Acute asthma exacerbation - Improving
- Patient continues to have wheezing and dyspnea
- Maintain on IV Solu-Medrol 40 mg every 12 hours
- Continue on DuoNeb therapy
- Subjectively better although continues to have wheezing on exam. No need of oxygen.
- Difficulty taking deep breath and having cough. Robitussin added - safe in
2. Possible pneumonitis/right lower lobe pneumonia
- Have nonproductive cough, which can also be present an asthma flare
- Maintained on azithromycin 500 mg daily -safe to take in third trimester
- Worsening leukocytosis likely from steroid use
3. Sinus tachycardia
- Combination of /inhaler therapy/possible pneumonia.
- VTE/PE in differential but have other explanation at this juncture. D-dimer of no benefit in
- EKG showing sinus tachycardia.
- Blood pressure soft and cannot provide beta-blockade. Labetalol and metoprolol safer option if needed
4. Normocytic anemia
- close to baseline, monitor
5. NAG metabolic acidosis
- suspecting compensatory to resp alkalosis form /asthma flare up
- sodium bicarb pill x1
DVT PPX -heparin subq
Full code
Anticipated Discharge: 24 - 48 hours
Subjective/Interval History
-
Date of Service: October 10, 2024
No issues overnight
Patient breathing subjectively better
Continues to have wheezing
Not on o2
Objective Data
-
Labs:
Laboratory Results
10/10/24
04:27
WBC 19.2 H
Hgb 9.8 L
Hct 28.7 L
Plt Count 259
Sodium 136
Potassium 4.2
Chloride 110 H
Carbon Dioxide 19 L
BUN 7
Creatinine 0.4 L
Glucose 125 H
Calcium 8.8
Vital Signs:
Vital Signs
Temp Pulse Resp BP Pulse Ox
98.0 F 110 18 124/77 96
10/10/24 11:00 10/10/24 11:03 10/10/24 11:03 10/10/24 11:00 10/10/24 11:00
I&O
10/09/24 10/10/24 10/11/24
06:59 06:59 06:59
Intake Total 2280 / 2280 1020 / 1020
Balance 2280 / 2280 1020 / 1020
Review of Systems
-
Respiratory: Reports Trouble Breathing; Denies Wheezing
Cardiac: Reports No Symptoms
Abdomen/GI: Reports No Symptoms
Physical Exam
-
General: No Apparent Distress and Comfortable
HEENT: Negative Oxygen
Respiratory: Wheezes
Cardiac: Regular Rhythm, S1/S2 and Tachycardic; Negative Murmur or Rub
Musculoskeletal: No Edema
Neuro: Awake, Alert, Oriented, No Motor Deficits and Nonfocal/Grossly Intact
Psych: Calm
[2024-10-10] MEDS: SODIUM BICARBONATE 650 MG PO (13:21)
[2024-10-10 15:00] VITALS: BP 107/70
--- NOTE | 2024-10-10 15:15 | PTCARENOTE ---
NST at bedside reactive. FHR 140 with +accelerations/-decelerations. Pt reports good movement. Denies contractions.
[2024-10-10] MEDS: ZITHROMAX 500 MG PO (17:42)
[2024-10-10 19:00] VITALS: BP 120/69
--- NOTE | 2024-10-10 21:49 | W.PN.OBG.DWH ---
Today's Communication / Plan
-
Cont daily nst Q 8hr.
Assessment/Plan
-
29w5d admitted for exacerbation of asthma
- improving but still with wheezing
- duonebs, soumedrol IV
Questionable pneumonia-has been on azithromycin -safe in /doesn't cross placenta
Mgmt for asthma, pneumonia per hospitalist/IMed service.
29w5d- reactive NST/reassuring testing
Cont daily NST Q 8hr
Subjective Data
-
No OB complaints
Active mvmt
No LOF or bleeding.
Breathing is subjectively better. Thinks she is 'turning the corner'
Objective Data
-
Laboratory Results
10/10/24 04:27
10/10/24 04:27
Vital Signs
Temp Pulse Resp BP Pulse Ox
97.6 F 110 18 120/69 96
10/10/24 19:00 10/10/24 20:28 10/10/24 20:28 10/10/24 19:00 10/10/24 20:28
VSS afeb
abd: soft NDNT, fundus gravid NT
Ext: no calf pain or edema
[2024-10-10 23:00] VITALS: BP 109/66
[2024-10-11 03:00] VITALS: BP 111/74
--- NOTE | 2024-10-11 03:11 | PTCARENOTE ---
NST at bedside completed. Category 1 strip noted. Pt feels movement - no complaints at this time.
[2024-10-11 03:54] VITALS: BMI 32.9
[2024-10-11 06:07] LABS: Hematocrit 28.9 % (37.0-47.0); Hemoglobin 9.8 g/dL (12.0-16.0); Mean Corp Hgb Conc. 33.9 g/dL (33.0-37.0); Mean Corpuscular Volume 90.0 fL (81.0-99.0); Platelet Count 253 10^3/uL (130-400); Red Cell Dist. Width 12.8 % (11.5-14.5)
[2024-10-11 06:32] LABS: Blood Urea Nitrogen 8 mg/dl (7-17); Calcium 9.0 mg/dl (8.4-10.2); Carbon Dioxide 21 mmol/L (22-30); Chloride 110 mmol/L (98-107); Estimated Creatinine Clearance > 125 ml/min; Glucose 105 mg/dl (70-99); Potassium 4.3 mmol/L (3.5-5.1); Sodium 137 mmol/L (135-145); eGFR > 60.00
[2024-10-11] MEDS: DUONEB 3 ML INH ×2 (07:16→11:18)
[2024-10-11 07:25] VITALS: BP 119/52
[2024-10-11] MEDS: PRENATAL PLUS 1 TABLET PO (08:09)
[2024-10-11] MEDS: ASPIR LOW (ENTERIC COATED) 81 MG PO (08:09)
[2024-10-11] MEDS: MUCINEX 600 MG PO ×2 (08:09→20:58)
--- NOTE | 2024-10-11 08:50 | W.PN.HOSP.TC ---
Today's Communication/Plan
-
Continue IV steroids, bronchodilators, consult pulmonology
Assessment / Plan
Assessment / Plan
1. Acute asthma exacerbation
- Patient continues to have wheezing and dyspnea
- Maintain on IV Solu-Medrol 40 mg every 12 hours
- Continue on DuoNeb therapy
- Patient reports continued shortness of breath with coughing and wheezing today, consult pulmonology
2. Pneumonitis without pneumonia
- Chest x-ray negative for infiltrate or opacity
- Has nonproductive cough, which can also be present an asthma flare
- Maintained on azithromycin 500 mg daily for anti-inflammatory effects-safe to take in third trimester
- Worsening leukocytosis likely from steroid use
3. Sinus tachycardia
- Combination of /inhaler therapy
- VTE/PE in differential but have other explanation at this juncture. D-dimer of no benefit in
- EKG showing sinus tachycardia.
- Blood pressure soft and cannot provide beta-blockade. Labetalol and metoprolol safer option if needed
4. Normocytic anemia
- Close to baseline, monitor
5. NAG metabolic acidosis
- Suspecting compensatory to resp alkalosis form /asthma flare up
- Sodium bicarb pill x1
DVT PPX -heparin subq
Full code
Updated mom at bedside 10/11
Total time spent to see the patient on the floor, examine the patient, review data and lab results, discuss treatment plan with patient, nursing staff around 38 minutes.
Physical Exam
General: Appears to be breathing comfortably, no acute distress
HEENT: Normocephalic, Atraumatic, EOMI, MMM
Respiratory: Diffuse wheezing noted
No accessory muscle use
Cardiac: Normal S1/S2, tachycardic rate and Rhythm
GI: Soft, gravid, nontender, Nondistended, Normal Bowel Sounds
Extremities: No Clubbing, Cyanosis, or Edema
Neuro: Nonfocal/Grossly Intact
Anticipated Discharge: 24 - 48 hours
Subjective/Interval History
-
Date of Service: October 11, 2024
Patient complains of continued coughing, wheezing, and shortness of breath, same as yesterday. No nausea, no vomiting. No vaginal bleeding, no vaginal discharge. Reports normal movement. No fever.
Objective Data
-
Labs:
Laboratory Results
10/11/24
05:46
WBC 20.1 H
Hgb 9.8 L
Hct 28.9 L
Plt Count 253
Sodium 137
Potassium 4.3
Chloride 110 H
Carbon Dioxide 21 L
BUN 8
Creatinine 0.4 L
Glucose 105 H
Calcium 9.0
Vital Signs:
Vital Signs
Temp Pulse Resp BP Pulse Ox
98.1 F 125 18 119/52 98
10/11/24 07:25 10/11/24 07:25 10/11/24 07:25 10/11/24 07:25 10/11/24 07:25
I&O
10/10/24 10/11/24 10/12/24
06:59 06:59 06:59
Intake Total 1020 / 1020 1560 / 1560
Balance 1020 / 1020 1560 / 1560
[2024-10-11] MEDS: DECADRON 4 MG IV (09:53)
[2024-10-11 11:00] VITALS: BP 110/64
--- NOTE | 2024-10-11 11:51 | W.PN.OBG.DWH ---
Today's Communication / Plan
-
continue q8h NST
Assessment/Plan
-
Patient is a 29yo @ 29.6 admitted with an asthma exacerbation and questionable pneumonia
IUP @39.6
- continue q8h NST, NST reactive and reassuring
Asthma exacerbation/pneumonia
- continue solumedrol/duonebs
- continue azithromycin
- Pulmonology consult
- Management per primary team
Subjective Data
-
No OB complaints. Patient still wheezing. She is feeling about the same. She denies cramping, contractions, LOF or vaginal bleeding. +FM. She has some abdominal pain from coughing so much.
Objective Data
-
Laboratory Results
10/11/24 05:46
10/11/24 05:46
Vital Signs
Temp Pulse Resp BP Pulse Ox
98.1 F 125 18 119/52 97
10/11/24 07:25 10/11/24 11:22 10/11/24 11:22 10/11/24 07:25 10/11/24 11:22
General: well appearing
Abd: gravid, nontender to palpation
--- NOTE | 2024-10-11 12:30 | CON.PUL ---
Consultation
Consultation Request
Date/Time Consultation Requested: 10/11/24
Date/Time Consultation Performed: 10/11/24
Performing Provider: Lita
Reason for Consultation: Asthma
Medical History
-
History of Present Illness:
Patient is a 29-year-old female with previous history of lifelong asthma, migraines, reflux presenting with cough and shortness of breath. She notes that her symptoms have been ongoing for the past 10 days, using her rescue inhaler at home but
having persistent short of breath and wheezing. She has occasional cough with yellow sputum. She is having symptoms at night requiring multiple pillows to sleep upright. This is her third . Her previous 2 had no issues in terms of her
asthma. She has felt that she has needed multiple rounds of antibiotics for upper respiratory infections (up to 4 courses) throughout this . She has a history of childhood asthma, had been on albuterol in the past. She has never been on
controller medications. She had been well-controlled as an adult with using albuterol rarely and as needed. No prior PFTs for review. She does not regularly see a glue mixer for asthma. She has not noticed that her allergies or any other
confounding factor may be present during this versus her previous ones.
Her mother is concerned about tachycardia though she had an echocardiogram in the past 2 months that showed no underlying cardiomyopathy. She has had preeclampsia in the last 2 pregnancies but otherwise has no history of cardiac disease. She does
follow with Dr. Solomon as an OP.
Past Medical History
Past Medical History: Other (see list below)
Social History
Tobacco: Non-smoker
Alcohol: None
Drug: None
Family History
Family History: Reviewed & Not Pertinent
Allergies / Home Medications
Allergies
Allergy/AdvReac Type Severity Reaction Status Date / Time
No Known Drug Allergies Allergy Unknown Verified 10/08/24 09:01
Home Medications
�Medication �Instructions �Recorded �Confirmed �Last Taken �Type
albuterol sulfate 90 mcg/actuation 2 puff inhalation R Q6HPRN PRN sob 10/08/24 10/08/24 10/08/24 History
aerosol inhaler
aspirin 81 mg tablet 81 mg PO DAILY Blood Clot 10/08/24 10/08/24 Unknown History
Prevention/Tx
Review of Systems
-
History Source: Patient
All other systems: Negative unless noted
Vitals / Labs / Diagnostic Testing
Vital Signs
Temp Pulse Resp BP Pulse Ox
98.3 F 125 18 110/64 97
10/11/24 11:00 10/11/24 11:22 10/11/24 11:22 10/11/24 11:00 10/11/24 11:22
Lab Data
10/11/24 05:46
10/11/24 05:46
Microbiology
10/08/24 19:25 Urine Urine Culture - Final
10/08/24 19:25 Urine Legionella Urinary Antigen - Final
Negative for Legionella pneumophila Serogroup 1 antigen.
A negative result does not rule out the possiblity of
Legionella infection due to other serogroups or species of
Legionella. Clinical correlation is recommended.
10/08/24 19:25 Urine Streptococcus pneumoniae Antigen (M - Final
Positive for Strep pneumo Ag
Diagnostic Testing:
Physical Exam
-
HEENT: Normocephalic, Anicteric and Moist Mucous Membranes
Cardiovascular: S1/S2, Regular Rhythm and Peripheral Edema (b/l, 1+)
Respiratory: Clear and Non-Labored Respirations
GI: Soft, Distended and Non Tender
Neurology: Awake, Alert, Oriented and No Motor Deficits
Skin: Warm, Dry and Good Color
General: Comfortable and Other (NAD)
Assessment
-
Patient is a 29-year-old female with previous history of lifelong asthma, migraines, reflux presenting with cough and shortness of breath. She notes that her symptoms have been ongoing for the past 10 days, using her rescue inhaler at home but
having persistent short of breath and wheezing. She has occasional cough with yellow sputum. She is having symptoms at night requiring multiple pillows to sleep upright. This is her third . Her previous 2 had no issues in terms of her
asthma. She has felt that she has needed multiple rounds of antibiotics for upper respiratory infections (up to 4 courses) throughout this . We are consulted for AE Asthma in a 30-week gestational patient 10/11/24.
AE of asthma
30 weeks of
Multiple URIs throughout on abx x 4
Wheezing
RLL opacity on CXR
Sinus tachycardia
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
Asthma, lifelong
History of preeclampsia
Plan
No oxygen was needed on admission, currently saturating >90% on RA
Prior history of lung disease is noted including -- history of childhood asthma, had been on albuterol in the past.
She has never been on controller medications.
She had been well-controlled as an adult with using albuterol rarely and as needed.
No prior PFTs for review.
She does not regularly see a glue mixer for asthma.
She has not noticed that her allergies or any other confounding factor may be present during this versus her previous ones.
Her mother is concerned about tachycardia though she had an echocardiogram in the past 2 months that showed no underlying cardiomyopathy.
She has had preeclampsia in the last 2 pregnancies but otherwise has no history of cardiac disease.
She does follow with Dr. Solomon as an OP.
Suspect patient has asthma flares possibly, not on controller meds
She is placed on IV steroids, will transition to p.o. prednisone, to taper at discharge
Will start budesonide BID (pulmicort) as this is the only inhaler that is category B (this can be continued through delivery and )
Can continue taking albuterol PRN, will stop QID nebs
We discussed asthma in and how to manage this
Would be beneficial for her to see us as an outpatient while she is undergoing her last 10 weeks of
CXR/CT obtained indicating possible right lower lobe opacity but there is very commonly seen bibasilar atelectasis in latter stages of the third trimester
She has had multiple antibiotics for pneumonia but she has no other signs and symptoms, would hold off on further antibiotics
She has sinus tachycardia on exam, her mother was concerned about underlying cardiomyopathy
Prior ECHO results are reviewed indicating no such cardiac disease, preserved function
She did have prior history of gestational pre-eclampsia, following with cardiology as an outpatient
It would be reasonable to obtain a follow-up visit within 1 to 2 weeks to re-evaluate
I will change her steroid regiment and inhaler therapy to see if reducing her albuterol usage would help decrease her sinus tachycardia
Will need outpatient pulmonary evaluation in our office for PFTs and 6MWT
Reviewed with patient
Can likely assess for discharge planning in the next 24 hours if patient drastically has improvement
Mother and patient are in agreement
We will follow
Diagnostic Data
Chest X-Ray: 10/08/24- No acute cardiopulmonary process.
08/09/22- No acute cardiopulmonary process.
CT Scan:
Echo: 08/07/24- Normal biventricular size and systolic function without regional wall motion abnormality. Estimated LVEF 60-65%. No significant valve disease. Compared to 04/04/16: no significant change.
PFT's:
Reports and relevant images were personally reviewed.
Total time spent on this consultation __75__ minutes which includes review of history, physical exam, medications, laboratory data, personal review of imaging, extensive review of outpatient records, discussion with care team and respiratory therapy.
[2024-10-11 15:00] VITALS: BP 125/74
[2024-10-11] MEDS: ZITHROMAX 500 MG PO (17:25)
[2024-10-11 19:00] VITALS: BP 112/63
[2024-10-11] MEDS: PULMICORT 0.5 MG INH (19:21)
[2024-10-11 23:00] VITALS: BP 94/62
--- NOTE | 2024-10-11 23:43 | PTCARENOTE ---
NST at bedside completed. Category 1 strip noted. Pt feels movement - no complaints at this time.
[2024-10-12 03:00] VITALS: BP 108/64
[2024-10-12 03:45] VITALS: BMI 33.4
[2024-10-12] MEDS: DUONEB 3 ML INH ×2 (05:57→10:51)
[2024-10-12] MEDS: PULMICORT 0.5 MG INH ×2 (05:57→18:05)
[2024-10-12 07:00] VITALS: BP 135/75
[2024-10-12] MEDS: DELTASONE 40 MG PO (08:33)
[2024-10-12] MEDS: PRENATAL PLUS 1 TABLET PO (08:34)
[2024-10-12] MEDS: ASPIR LOW (ENTERIC COATED) 81 MG PO (08:34)
[2024-10-12] MEDS: MUCINEX 600 MG PO (08:34)
--- NOTE | 2024-10-12 09:30 | W.PN.PUL3 ---
Today's Communication / Plan
-
Continue budesonide, which we can change to Pulmicort inhaler eventually as OP
Prednisone taper
Encouraged ambulating/OOB, she is concerned about her work/PTO (can apply for short-term disability)
We discussed discharge planning but she is not sure if she is ready, wants to discus with her mother first
We will arrange short term FU visit as OP
Assessment
-
Patient is a 29-year-old female with previous history of lifelong asthma, migraines, reflux presenting with cough and shortness of breath. She notes that her symptoms have been ongoing for the past 10 days, using her rescue inhaler at home but
having persistent short of breath and wheezing. She has occasional cough with yellow sputum. She is having symptoms at night requiring multiple pillows to sleep upright. This is her third . Her previous 2 had no issues in terms of her
asthma. She has felt that she has needed multiple rounds of antibiotics for upper respiratory infections (up to 4 courses) throughout this . We are consulted for AE Asthma in a 30-week gestational patient 10/11/24.
AE of asthma
30 weeks of
Multiple URIs throughout on abx x 4
Wheezing
RLL opacity on CXR
Sinus tachycardia
Conditions present AUDIT SPEC
Asthma, lifelong
History of preeclampsia
Plan
No oxygen was needed on admission, currently saturating >90% on RA
Prior history of lung disease is noted including -- history of childhood asthma, had been on albuterol in the past.
She has never been on controller medications.
She had been well-controlled as an adult with using albuterol rarely and as needed.
No prior PFTs for review.
She does not regularly see a scheduling agent for asthma.
She has not noticed that her allergies or any other confounding factor may be present during this versus her previous ones.
Her mother is concerned about tachycardia though she had an echocardiogram in the past 2 months that showed no underlying cardiomyopathy.
She has had preeclampsia in the last 2 pregnancies but otherwise has no history of cardiac disease.
She does follow with Dr. Solomon as an OP.
Suspect patient has asthma flares possibly, not on controller meds
She is placed on IV steroids, will transition to p.o. prednisone, to taper at discharge
Continue budesonide BID (pulmicort) as this is the only inhaler that is category B (this can be continued through delivery and )
Can continue taking albuterol PRN, will stop QID nebs
We discussed asthma in and how to manage this
Would be beneficial for her to see us as an outpatient while she is undergoing her last 10 weeks of
CXR/CT obtained indicating possible right lower lobe opacity but there is very commonly seen bibasilar atelectasis in latter stages of the third trimester
She has had multiple antibiotics for pneumonia but she has no other signs and symptoms, would hold off on further antibiotics
She has sinus tachycardia on exam, her mother was concerned about underlying cardiomyopathy
Prior ECHO results are reviewed indicating no such cardiac disease, preserved function
She did have prior history of gestational pre-eclampsia, following with cardiology as an outpatient
It would be reasonable to obtain a follow-up visit within 1 to 2 weeks to re-evaluate
I will change her steroid regiment and inhaler therapy to see if reducing her albuterol usage would help decrease her sinus tachycardia
Will need outpatient pulmonary evaluation in our office for PFTs and 6MWT
Reviewed with patient
Can likely assess for discharge planning--she is not sure if she is ready and wants to discuss with her mother
Diagnostic Data
Chest X-Ray: 10/08/24- No acute cardiopulmonary process.
08/09/22- No acute cardiopulmonary process.
CT Scan:
Echo: 08/07/24- Normal biventricular size and systolic function without regional wall motion abnormality. Estimated LVEF 60-65%. No significant valve disease. Compared to 04/04/16: no significant change.
PFT's:
Reports and relevant images were personally reviewed.
Total time spent on this consultation _50__ minutes which includes review of history, physical exam, medications, laboratory data, personal review of imaging, extensive review of outpatient records, discussion with care team and respiratory therapy.
Subjective Data
-
Date of Service:
Date of Service: October 12, 2024
Chief Complaint: Pulmonary Follow Up
Subjective:
Not sure if feeling better since adding budesonide
She has not been as active/OOB, etc
Objective Data
Data Reviewed
Vital Signs / I&O / Oxygen:
Vital Signs
Temp Pulse Resp BP Pulse Ox
98.1 F 101 19 135/75 96
10/12/24 07:00 10/12/24 07:00 10/12/24 07:00 10/12/24 07:00 10/12/24 07:00
Intake and Output
10/11/24 10/12/24 10/13/24
06:59 06:59 06:59
Intake Total 1560 / 1560 2480 / 2480
Balance 1560 / 1560 2480 / 2480
SaO2 96
Physical Exam
General: Comfortable and Other (NAD)
HEENT: Normocephalic, Anicteric and Moist Mucous Membranes
Cardiovascular: S1-S2 and Regular Rhythm
Respiratory: Wheeze (slight, faint with forced exhale) and Non-Labored Respirations
GI: Soft, Distended and Non Tender
Neurology: Awake, Alert, Oriented and No Motor Deficits
Skin: Warm, Dry and Good Color
Labs/Micro/Reports
Lab Data
10/11/24 05:46
10/11/24 05:46
Microbiology
10/08/24 19:25 Urine Urine Culture - Final
10/08/24 19:25 Urine Legionella Urinary Antigen - Final
Negative for Legionella pneumophila Serogroup 1 antigen.
A negative result does not rule out the possiblity of
Legionella infection due to other serogroups or species of
Legionella. Clinical correlation is recommended.
10/08/24 19:25 Urine Streptococcus pneumoniae Antigen (M - Final
Positive for Strep pneumo Ag
[2024-10-12 11:00] VITALS: BP 98/64
--- NOTE | 2024-10-12 11:57 | W.PN.OBG.DWH ---
Today's Communication / Plan
-
continue with nsts q 8 h while awake
dc as per medicine/pulm
Assessment/Plan
-
30 wks IUP
asthma on steroids
appreciate pulm consult
Subjective Data
-
continues to have cough
+ FM
Objective Data
-
Laboratory Results
10/11/24 05:46
10/11/24 05:46
Vital Signs
Temp Pulse Resp BP Pulse Ox
97.9 F 113 20 98/64 98
10/12/24 11:00 10/12/24 11:00 10/12/24 11:00 10/12/24 11:00 10/12/24 11:00
--- NOTE | 2024-10-12 12:09 | PTCARENOTE ---
NST done for baby. Reactive strip. FHR @ 145 with accels noted, no decels noted at this time.
--- NOTE | 2024-10-12 14:19 | CM ---
Continues with Pulmonary .
Pox 98% on room air.
This is patients third .
Steroids changed to po.
PLAN Home no needs
[2024-10-12 14:32] LABS: Hematocrit 29.8 % (37.0-47.0); Hemoglobin 10.3 g/dL (12.0-16.0); Mean Corp Hgb Conc. 34.6 g/dL (33.0-37.0); Mean Corpuscular Volume 89.2 fL (81.0-99.0); Platelet Count 273 10^3/uL (130-400); Red Cell Dist. Width 13.1 % (11.5-14.5)
[2024-10-12 15:10] LABS: Iron 37 ug/dl (37-170)
--- NOTE | 2024-10-12 15:14 | CON.CAR ---
Addendum entered and electronically signed by Ronald Geiger MD 10/12/24 19:47:
I saw and examined the patient.
The BUSINESS PERFORMANCE ANALYST's note was reviewed and I agree with the note.
.
29-year-old woman with history of asthma who is 30 weeks and presented with shortness of breath asthma exacerbation and is now treated for pneumonia. Patient is also been seen by pulmonary, [facility] and infectious disease. Consultation for
tachycardia. ECG shows sinus rhythm/sinus tachycardia. Telemetry shows sinus rhythm/sinus tachycardia with no significant arrhythmias. Echocardiogram this admission shows normal left ventricular function and no significant valvular disease.
Sinus tachycardia is multifactorial related to asthma, pneumonia and . Medications/nebs can also contribute. Left ventricular function is normal.
- Continued optimization of respiratory issues including treatment of asthma and pneumonia as directed by primary team, pulmonary and ID
- Check thyroid studies
- Heart rates likely to trend down with additional treatment.
- Can monitor on telemetry
Original Note:
Consultation
Consultation Request
Date/Time Consultation Requested: 10/12/2024 14:15
Date/Time Consultation Performed: 10/12/2024 14:40
Requesting Provider: Dr. Barbosa
Performing Provider: JAMES Urbina for Dr. Geiger
Reason for Consultation: Tachycardia
Medical History
-
Chief Complaint: Shortness of breath
History of Present Illness:
Leonarda Koroma is a 29-year-old female (known to Dr. Solomon, her primary welt insole channeler), with asthma and preeclampsia who presented to the emergency department 10/08/2024 with shortness of breath. She endorsed associated cough. She was
frequently requiring her rescue inhaler but was not getting relief. She was admitted with an acute asthma exacerbation. She had right lower lobe opacity on CXR questionable for pneumonia. Urine positive for strep pneumo antigen. She is currently
on antibiotics and has transition from intravenous to oral steroids. Cardiology was consulted for persistent tachycardia.
Past Medical History
Past Medical History: Asthma, GERD and Other (IBS)
Past Surgical History: Cholecystectomy and Gynecological
Social History
Tobacco: Non-Smoker
Alcohol: None
Drug: None
Personal:
Living: With Family
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
Family History
Family History: Reviewed & Not Pertinent
Allergies / Home Medications
Allergy/AdvReac Type Severity Reaction Status Date / Time
No Known Drug Allergies Allergy Unknown Verified 10/08/24 09:01
�Medication �Instructions �Recorded �Confirmed �Type
albuterol sulfate 90 mcg/actuation 2 puff inhalation R Q6HPRN PRN sob 10/08/24 10/08/24 History
aerosol inhaler
aspirin 81 mg tablet 81 mg PO DAILY Blood Clot 10/08/24 10/08/24 History
Prevention/Tx
Review of Systems
-
History Source: Patient
All other systems: Negative unless noted
Constitutional: Fatigue
EENT: No Symptoms
Respiratory: Cough
Cardiac: Palpitations
Abdomen/GI: No Symptoms
: No Symptoms
Musculoskeletal: No Symptoms
Skin: No Symptoms
Neurological: No Symptoms
Endocrine: No Symptoms
Hematologic/Lymphatic: No Symptoms
Physical Exam
Vital Signs
Temp Pulse Resp BP Pulse Ox
97.9 F 113 20 98/64 98
10/12/24 11:00 10/12/24 11:00 10/12/24 11:00 10/12/24 11:00 10/12/24 11:00
Lab Results
10/12/24 14:21
10/11/24 05:46
Physical Exam
General: Well Developed, Well Nourished, No Apparent Distress and Comfortable
HEENT: Normocephalic and Moist Mucous Membranes
Respiratory: Clear and Non Labored Respirations
Cardiac: S1/S2, Regular Rhythm (Tachycardia) and Peripheral Edema (Trace lower extremity)
Breast: Deferred by me
GI: Other (Gravid)
Rectal: Deferred by Provider
Genito-urinary: No Costovertebral Tender
Musculoskeletal: No Clubbing and No Cyanosis
Skin: Warm and Dry
Neuro: AO x 3
Hematologic/Lymphatic: No Lymphadenopathy
Psych: Calm
Impression / Plan
-
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
Outpatient welt insole channeler: Dr. Solomon
Sinus tachycardia
- Occasional palpitations
- Update EKG
- This could be multifactorial in the setting of third trimester gestation/inhaler therapy/steroids/acute illness
- Follow-up TTE ordered, no acute findings 07/2024 TTE
- TSH with reflex to T4 in a.m.
Acute exacerbation of asthma, on steroids
Pneumonia, on azithromycin
Abnormal urine screen, positive for strep pneumonia ag, ID consulted by primary service
History of preeclampsia
- Second she was induced at 39/1
- She did not require medication pre or postdelivery
- On daily ASA
Leukocytosis, in the setting of steroids
Data Reviewed
-
EKG: Report Reviewed by me
Medical Tests (Nuc Med, Echo etc): Report Reviewed by me
Labs: Labs Reviewed by me
Old Records: Reviewed
--- NOTE | 2024-10-12 15:17 | W.PN.HOSP.TC ---
Today's Communication/Plan
-
ECHO
PO steroids
Assessment / Plan
Assessment / Plan
29-year-old female with history of exercise-induced asthma presented with cough. She was seen in the ER on 10/08/2024 and was admitted. She also had productive yellow sputum and not able to sleep despite using multiple pillows to sit upright. She
had tachycardia was seen in urgent care center and was referred to body bumper. She saw Dr. Cunha the plan was to do Holter monitor as outpatient.
[facility]- Single intrauterine in cephalic presentation. No evidence for placenta previa. The cervix appears long and closed. Amniotic fluid volume is within normal limits. heart rate of 134 bpm. measurements give an estimated
gestational age of 30 weeks and 5 days, +/- 3 weeks. LMP percentile is 70%.
Strep Pneumo antigen positive.
CXR- Faint opacity in the right lung base on the PA projection. In the appropriate clinical setting, a mild pneumonitis/pneumonia could be considered.
CVS: S1-S2 mild tachy
Chest: CTA B/L
Abdomen: Soft, NT , Bowel sounds present
Extremities: No edema, normal pulses
heart sounds appreciated.
# Acute asthma exacerbation
Not hypoxic or requiring oxygen. Saturations have been in Upper 90s throughout the stay.
Strep Pneumonia right lung base
History of exercise-induced asthma
Chest x-ray-as above
Zithromax to be continued( considered safe to use in )
Patient was started on Decadron 4 mg IV every 12 hours which has been switched to prednisone 40 mg daily per pulmonary
Inhaled steroids started.
Currently albuterol/Atrovent-(considered safe to use in .)
Stop Guaifenesin
# G3, P2 third-trimester -30 weeks - Daily NST per ObGyn.
# History of preeclampsia previous . Per discussion with OB goal blood pressure will be 140/90 and below. All the readings have been under this goal. Continue aspirin 81 mg ( Considered safe in )
# Asymptomatic bacteriuria- Urine culture neg.
# Normocytic anemia-repeat CBC today
# Palpitations/tachycardia-echo 08/07/2024-normal biventricular size and systolic function without regional wall motion abnormality. EF 60 to 65%. No significant valve disease. No change since 04/04/2016. Repeat echo per cardiology. Patient will
also get an outpatient monitor.
# GERD/IBS-Continue Tums prn ( considered safe in )
# History of migraines
# H/O IBS per chart
# DVT prophylaxis-On SCDs now. This must be worn while in bed. Can be taken off when patient gets out of bed for a walk.
# Full code
Discussed with ObGyn
Discussed with cardiology at bedside
Discussed with nursing at bed beckie
Request ID eval.
Per literature
'Asthma exacerbation during third trimester of the can increase adverse maternal and outcomes including preeclampsia, -induced hypertension, , low weight, small for gestational age infants and
. Exacerbation also increase risk of associated high rates of respiratory complications and ice crusher asthma in Offspring. '
Advised patient to continue with inhaled steroids to prevent future asthma exacerbations.
Patient did not have SCD on , discussed about the importance of wearing SCDs while in bed and to take them off only when she walks.
Part of this note was created using voice recognition system. Occasional wrong word or��sound alike� substitutions may have inadvertently occurred due to the inherent limitations of voice recognition software. If noted kindly bring it to my
attention for correction.
Anticipated Discharge: 24 - 48 hours
Subjective/Interval History
-
Date of Service: October 12, 2024
Objective Data
-
Labs:
Laboratory Results
10/12/24
14:21
WBC 18.1 H
Hgb 10.3 L
Hct 29.8 L
Plt Count 273
Vital Signs:
Vital Signs
Temp Pulse Resp BP Pulse Ox
97.9 F 113 20 98/64 98
10/12/24 11:00 10/12/24 11:00 10/12/24 11:00 10/12/24 11:00 10/12/24 11:00
I&O
10/11/24 10/12/24 10/13/24
06:59 06:59 06:59
Intake Total 1560 / 1560 2480 / 2480
Balance 1560 / 1560 2480 / 2480
[2024-10-12 15:20] LABS: Total Iron Binding Capacity 518 ug/dl (265-497)
[2024-10-12 15:45] VITALS: BP 128/84
[2024-10-12 16:56] LABS: Ferritin 7.2 ng/ml (6.24-137)
[2024-10-12 17:10] LABS: Vitamin B12 253 pg/ml (239-931)
[2024-10-12] MEDS: ZITHROMAX 500 MG PO (18:18)
--- NOTE | 2024-10-12 18:31 | CON.ID ---
Consultation
-
Date/Time Consultation Requested: 10/12/2024 1450
Date/Time Consultation Performed: 10/12/2024 1800
Requesting Provider: Dr. Barbosa
Performing Provider: Dr. Crow
Reason for Consultation: Asymptomatic bacteriuria
Chief Complaint / Past History
History of Present Illness
Leonarda Koroma is a 29-year-old female being evaluated at the request of Dr. Barbosa regarding asymptomatic bacteriuria. History is obtained from chart review, along with patient interview.
The patient reports that around September 28 she recalls developing a sore throat, that subsequently progressed to cough and wheeze. Mid last week she then developed right upper abdominal discomfort. She presented to the emergency room on 10/08 for
further evaluation.
Initial workup in the ER revealed a low-grade leukocytosis, and concern for potential right lower lobe infiltrate. She was placed on empiric antibiotics. A urine culture subsequently was found to be positive for bacteria, and Infectious Diseases
is asked to comment upon further antimicrobial management.
The patient reports that she has not had any fevers or chills but she has not had yellow sputum. She denies any hemoptysis. Currently she notes ongoing right lower chest discomfort which is worse with cough, and is occasionally exacerbated by deep
breaths. She denies any nausea, vomiting or diarrhea. She denies any dysuria. She denies any sick contacts.
Past History
Additional Past Medical History:
Asthma
IBS
Reflux disease
History of migraines
Additional Past Surgical History:
Cholecystectomy
Allergy History:
No Known Drug Allergies Allergy (Verified 10/08/24 09:01)
Unknown
Current Antibiotics:
Azithromycin (d#5)
Social History
Tobacco: Non-Smoker
Alcohol: None
Drug: None
Personal:
Living: With Family
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
Family History
Family History: Not Pertinent
Review of Systems
Vital Signs
Temp Pulse Resp BP Pulse Ox
98.2 F 107 16 128/84 96
10/12/24 15:00 10/12/24 18:07 10/12/24 18:07 10/12/24 15:45 10/12/24 18:07
Physical Exam
Physical Exam
Constitutional: No Acute Distress, Comfortable and Non-toxic
Head: Normocephalic
Eyes: Pupils Equal, Pupils Round, No Conjunctival Hemorrhage and Sclera Anicteric
Oral: No Thrush and No Ulcers
Cardiovascular: Regular Rate and S1/S2; Negative S3/S4
Pulmonary: Clear and Non Labored; Negative Wheezes, Rales or Rhonchi
Gastrointestinal: Soft, Non Tender, Distended (gravid) and Normal Bowel Sounds
Extremities: Edema; Negative Cyanosis or Erythema
Neurological: AO x 3
Psychological: Calm
.
Lab / Diagnostic Study Results
10/12/24 14:21
10/11/24 05:46
Abs Immat Gran (auto) 0.2 10^3/uL (0-0.05) H 10/08/24 14:09
Absolute Neuts (auto) 10.7 10^3/uL (1.4-6.5) H 10/08/24 14:09
Absolute Lymphs (auto) 1.5 10^3/uL (1.2-3.4) 10/08/24 14:09
Absolute Monos (auto) 0.9 10^3/uL (0.1-0.6) H 10/08/24 14:09
Absolute Basos (auto) 0.1 10^3/uL (0-0.2) 10/08/24 14:09
Immature Gran % 1.5 % (0-0.5) H 10/08/24 14:09
Neutrophils % 77.6 % (42.2-75.2) H 10/08/24 14:09
Lymphocytes % 10.9 % (20.5-51.1) L 10/08/24 14:09
Monocytes % 6.3 % (1.7-9.3) 10/08/24 14:09
Eosinophils % 3.1 % (0-6) 10/08/24 14:09
Basophils % 0.6 % (0-2) 10/08/24 14:09
Ur Squamous Epith Cells >30 /LPF (Few) 10/08/24 19:25
Microbiology Results
Micro:
10/08/24 19:25 Urine Culture - Final
Urine
10/08/24 19:25 Legionella Urinary Antigen - Final
Urine Negative for Legionella pneumophila Serogroup 1 antigen.
A negative result does not rule out the possiblity of
Legionella infection due to other serogroups or species of
Legionella. Clinical correlation is recommended.
Streptococcus pneumoniae Antigen (M - Final
Positive for Strep pneumo Ag
Imaging:
10/08/2024 CXR (2 view): Faint opacity in the right lung base on the PA projection. Mild pneumonitis/pneumonia to be considered. Please see full dictation for additional detail. Film personally reviewed.
Assessment / Plan
Suspected right lower lobe pneumonia due to strep pneumoniae
Leukocytosis; suspect steroid effect
Bacteriuria
- Culture likely reflects contamination given significant squamous epithelial cells noted on UA.
Exacerbation asthma
30-week IUP
Recommendations:
Given recovery of strep pneumo antigen, will initiate ceftriaxone 1 g IV every 24 hours
At discharge, can likely transition to oral cefdinir 300 mg twice daily. Would complete a 5 to 7-day course of therapy
Repeat urinalysis and urine culture to assess for any bacteriuria.
Monitor white count and temperature curve.
[2024-10-12 20:20] VITALS: BP 120/70
[2024-10-12] MEDS: STERILE WATER FOR INJECTION 20 ML IV (20:44)
[2024-10-12] MEDS: ROCEPHIN 2000 MG IV (20:44)
[2024-10-12] MEDS: TUMS CHEWABLE TABLET 400 MG PO (22:02)
[2024-10-12 22:31] LABS: Urine Character Clear (Clear)
[2024-10-12 23:40] VITALS: BP 110/70
[2024-10-13] MEDS: DUONEB 3 ML INH ×4 (02:04→15:07)
--- NOTE | 2024-10-13 02:37 | PTCARENOTE ---
Addendum entered by Sheila Nguyen RN 10/13/24 02:43:
FHR 140 + accelerations, -decelerations.
Original Note:
NST completed at bedside. FHR reactive, no contractions noted and pt feeling baby movement. Pt has no complaints at this time.
[2024-10-13 03:25] VITALS: BP 119/62
[2024-10-13 05:58] VITALS: BMI 33.2
[2024-10-13 05:59] LABS: Hematocrit 28.5 % (37.0-47.0); Hemoglobin 9.7 g/dL (12.0-16.0); Mean Corp Hgb Conc. 34.0 g/dL (33.0-37.0); Mean Corpuscular Volume 89.3 fL (81.0-99.0); Platelet Count 267 10^3/uL (130-400); Red Cell Dist. Width 12.9 % (11.5-14.5)
[2024-10-13 06:14] LABS: Blood Urea Nitrogen 6 mg/dl (7-17); Calcium 9.1 mg/dl (8.4-10.2); Carbon Dioxide 23 mmol/L (22-30); Chloride 109 mmol/L (98-107); Estimated Creatinine Clearance > 125 ml/min; Glucose 82 mg/dl (70-99); Potassium 3.6 mmol/L (3.5-5.1); Sodium 135 mmol/L (135-145); eGFR > 60.00
[2024-10-13 07:00] VITALS: BP 103/60
[2024-10-13] MEDS: ASPIR LOW (ENTERIC COATED) 81 MG PO (07:33)
[2024-10-13] MEDS: DELTASONE 40 MG PO (07:33)
[2024-10-13] MEDS: PRENATAL PLUS 1 TABLET PO (07:35)
[2024-10-13] MEDS: PULMICORT 0.5 MG INH (07:40)
--- NOTE | 2024-10-13 08:13 | W.PN.CD ---
Today's Communication / Plan
-
- Echocardiogram yesterday was normal (EF 60-65%, no significant valvular disease).
- Heart rate will improve after underlying issues resolve; no further recommendations from a cardiac standpoint at this time (outpatient Cardiology is not needed).
Impression / Plan
-
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
Outpatient senior administrative assistant: Dr. Solomon
Sinus tachycardia
- Secondary to underlying medical condition/infections (pneumonia, UTI).
- Echocardiogram yesterday was normal (EF 60-65%, no significant valvular disease).
- Multifactorial in the setting of third trimester gestation/inhaler therapy/steroids/acute illness.
- Heart rate will improve after underlying issues resolve; no further recommendations from a cardiac standpoint at this time (outpatient Cardiology is not needed).
Acute exacerbation of asthma, on steroids
- On steroids.
Pneumonia, on azithromycin
Abnormal urine screen, positive for strep pneumonia ag -- ID consulted.
History of preeclampsia
- Second she was induced at 39/1
- She did not require medication pre or postdelivery
- On daily ASA
Leukocytosis, in the setting of steroids
Physical Exam
Vital Signs/Labs
Vital Signs
Temp Pulse Resp BP Pulse Ox
98.6 F 104 16 103/60 95
10/13/24 07:00 10/13/24 07:50 10/13/24 07:50 10/13/24 07:00 10/13/24 07:00
10/12/24 10/13/24 10/14/24
06:59 06:59 06:59
Actual Weight 91.127 kg 90.463 kg
10/13/24 05:39
10/13/24 05:39
Physical Exam
Constitutional: No acute distress and Comfortable
EENT: Anicteric
Cardiovascular: Pedal edema is absent, Systolic murmur absent, S1S2 is normal and Other (Regular rhythm, tachycardic)
Respiratory: Respiratory effort normal and Wheeze Present
GI: Soft
Neuro/Psych: AO x 3
Other: Skin (Warm, dry, intact)
Data Reviewed
-
Date of Service: October 13, 2024
EKG: Tracing Personally Visualized and interpreted (Telemetry: Sinus tachycardia)
Echo: Report Reviewed by me (LVEF 60-65%, no significant valvular disease.)
Labs: Labs Reviewed by me
--- NOTE | 2024-10-13 09:34 | W.PN.HOSP.TC ---
Today's Communication/Plan
-
Cleared by pulmonology for discharge today
Assessment / Plan
Assessment / Plan
29-year-old female with history of exercise-induced asthma presented with cough. She was seen in the ER on 10/08/2024 and was admitted. She also had productive yellow sputum and not able to sleep despite using multiple pillows to sit upright. She
had tachycardia was seen in urgent care center and was referred to mercury cell cleaner. She saw Dr. Cunha the plan was to do Holter monitor as outpatient.
[facility] OB- Single intrauterine in cephalic presentation. No evidence for placenta previa. The cervix appears long and closed. Amniotic fluid volume is within normal limits. heart rate of 134 bpm. measurements give an estimated
gestational age of 30 weeks and 5 days, +/- 3 weeks. LMP percentile is 70%.
Strep Pneumo antigen positive.
CXR- Faint opacity in the right lung base on the PA projection. In the appropriate clinical setting, a mild pneumonitis/pneumonia could be considered.
#Acute asthma exacerbation
#Acute strep pneumonia
Not hypoxic or requiring oxygen. Saturations have been in Upper 90s throughout the stay.
Strep Pneumonia right lung base
Appreciate pulmonology input, IV steroids changed to oral prednisone
Zithromax to be continued( considered safe to use in )
Appreciate ID input, on IV Rocephin for strep pneumoniae
Currently albuterol/Atrovent-(considered safe to use in .)
Breathing has significantly improved, she is ready for discharge today
Cleared by pulmonology for discharge on prednisone taper, budesonide neb, cefdinir, azithromycin
Follow-up with pulmonology in the office
# G3, P2 third-trimester -30 weeks -follow-up with OB in the office
# History of preeclampsia previous . Per discussion with OB goal blood pressure will be 140/90 and below. All the readings have been under this goal. Continue aspirin 81 mg ( Considered safe in )
# Asymptomatic bacteriuria- Urine culture neg.
# Normocytic anemia-repeat CBC today
# Palpitations/tachycardia-echo 08/07/2024-normal biventricular size and systolic function without regional wall motion abnormality. EF 60 to 65%. No significant valve disease. No change since 04/04/2016. Repeat echo per cardiology. Patient will
also get an outpatient monitor.
# GERD/IBS-Continue Tums prn ( considered safe in )
# History of migraines
# H/O IBS per chart
# DVT prophylaxis-On SCDs now. This must be worn while in bed. Can be taken off when patient gets out of bed for a walk.
# Full code
Physical Exam
General: Appears to be breathing comfortably, no acute distress
HEENT: Normocephalic, Atraumatic, EOMI, MMM
Respiratory: Trace wheezing noted, improved from prior
No accessory muscle use
Cardiac: Normal S1/S2, tachycardic rate and Rhythm
GI: Soft, gravid, nontender, Nondistended, Normal Bowel Sounds
Extremities: No Clubbing, Cyanosis
Neuro: Nonfocal/Grossly Intact
Anticipated Discharge: Today
Subjective/Interval History
-
Date of Service: October 13, 2024
Patient reports her breathing has improved significantly since admission. She still feels labored, but if states it is tolerable. She reports feeling ready to go home today. Denies chest pain. No fever, no vomiting.
Objective Data
-
Labs:
Laboratory Results
10/13/24
05:39
WBC 19.9 H
Hgb 9.7 L
Hct 28.5 L
Plt Count 267
Sodium 135
Potassium 3.6
Chloride 109 H
Carbon Dioxide 23
BUN 6 L
Creatinine 0.4 L
Glucose 82
Calcium 9.1
Vital Signs:
Vital Signs
Temp Pulse Resp BP Pulse Ox
98.6 F 104 16 103/60 95
10/13/24 07:00 10/13/24 07:50 10/13/24 07:50 10/13/24 07:00 10/13/24 07:00
I&O
10/12/24 10/13/24 10/14/24
06:59 06:59 06:59
Intake Total 2480 / 2480 1919
Balance 2480 / 2480 1919
--- NOTE | 2024-10-13 10:47 | W.PN.ID1 ---
Date of Service
Date of Service: October 13, 2024
Today's Communication
Continue antibiotics. See below�
Assessment / Plan
Suspected right lower lobe pneumonia due to strep pneumoniae
Leukocytosis; suspect steroid effect
Bacteriuria
- Culture likely reflects contamination given significant squamous epithelial cells noted on UA.
Exacerbation asthma
30-week IUP
Recommendations:
Patient overall appears clinically stable today. No objection from a Infectious diseases standpoint to discharge.
At discharge, transition to oral cefdinir 300 mg twice daily. Would complete an additional 6 days of antibiotics.
Repeat urinalysis negative. Urine culture is pending, although should not likely hold up discharge.
����������������������������������������������������������
Chief Complaint
-: Pneumonia
Subjective / Review of Systems
Review of Systems: No Fever, No Chills, Cough and Sputum Production (Minimal)
Vital Signs / Physical Exam
Vital Signs
Vital Signs
Temp Pulse Resp BP Pulse Ox
98.6 F 104 16 103/60 95
10/13/24 07:00 10/13/24 07:50 10/13/24 07:50 10/13/24 07:00 10/13/24 07:00
Physical Exam
Constitutional: No Acute Distress, Comfortable and Non-toxic
Eyes: Sclera Anicteric
Cardiovascular: S1/S2; Negative S3/S4
Pulmonary: Coarse and Non Labored; Negative Rhonchi
Gastrointestinal: Soft, Non Tender and Non Distended
Neurological: Awake and Alert
Psychological: Calm
Objective Data
Lab Data
Lab Results
10/13/24 05:39
10/13/24 05:39
Estimated Creat Clear > 125 ml/min 10/13/24 05:39
Total Bilirubin 0.4 mg/dl (0.2-1.3) 10/08/24 14:09
AST 26 U/L (14-36) 10/08/24 14:09
ALT 18 U/L (0-35) 10/08/24 14:09
Alkaline Phosphatase 126 U/L (38-126) 10/08/24 14:09
Most recent labs reviewed.
Micro Results:
10/12/24 22:21 Urine Culture - Pending
Urine
10/08/24 19:25 Urine Culture - Final
Urine
10/08/24 19:25 Legionella Urinary Antigen - Final
Urine Negative for Legionella pneumophila Serogroup 1 antigen.
A negative result does not rule out the possiblity of
Legionella infection due to other serogroups or species of
Legionella. Clinical correlation is recommended.
Streptococcus pneumoniae Antigen (M - Final
Positive for Strep pneumo Ag
Imaging:
10/08/2024 CXR (2 view): Faint opacity in the right lung base on the PA projection. Mild pneumonitis/pneumonia to be considered. Please see full dictation for additional detail. Film personally reviewed.
[2024-10-13 11:00] VITALS: BP 125/80
--- NOTE | 2024-10-13 11:28 | W.PN.PUL3 ---
Today's Communication / Plan
-
No new complaints, SOB is improving
Budesonide to be continued at discharge, she prefer to keep as neb
Prednisone taper
Encouraged OOB/ambulation
Discharge planning today, patient is in agreement
OP FU to be arranged in 1-2 weeks
Assessment
-
Patient is a 29-year-old female with previous history of lifelong asthma, migraines, reflux presenting with cough and shortness of breath. She notes that her symptoms have been ongoing for the past 10 days, using her rescue inhaler at home but
having persistent short of breath and wheezing. She has occasional cough with yellow sputum. She is having symptoms at night requiring multiple pillows to sleep upright. This is her third . Her previous 2 had no issues in terms of her
asthma. She has felt that she has needed multiple rounds of antibiotics for upper respiratory infections (up to 4 courses) throughout this . We are consulted for AE Asthma in a 30-week gestational patient 10/11/24.
AE of asthma
30 weeks of
Multiple URIs throughout on abx x 4
Wheezing
RLL opacity on CXR
Sinus tachycardia
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
Asthma, lifelong
History of preeclampsia
Plan
No oxygen was needed on admission, currently saturating >90% on RA
Prior history of lung disease is noted including -- history of childhood asthma, had been on albuterol in the past.
She has never been on controller medications.
She had been well-controlled as an adult with using albuterol rarely and as needed.
No prior PFTs for review.
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
She has not noticed that her allergies or any other confounding factor may be present during this versus her previous ones.
Her mother is concerned about tachycardia though she had an echocardiogram in the past 2 months that showed no underlying cardiomyopathy.
She has had preeclampsia in the last 2 pregnancies but otherwise has no history of cardiac disease.
She does follow with Dr. Solomon as an OP.
Suspect patient has asthma flares possibly, not on controller meds
She is placed on IV steroids, will transition to p.o. prednisone, to taper at discharge
Continue budesonide BID (pulmicort) as this is the only inhaler that is category B (this can be continued through delivery and )
Can continue taking albuterol PRN, will stop QID nebs
We discussed asthma in and how to manage this
Would be beneficial for her to see us as an outpatient while she is undergoing her last 10 weeks of
CXR/CT obtained indicating possible right lower lobe opacity but there is very commonly seen bibasilar atelectasis in latter stages of the third trimester
She has had multiple antibiotics for pneumonia but she has no other signs and symptoms, would hold off on further antibiotics
She has sinus tachycardia on exam, her mother was concerned about underlying cardiomyopathy
Prior ECHO results are reviewed indicating no such cardiac disease, preserved function
She did have prior history of gestational pre-eclampsia, following with cardiology as an outpatient
It would be reasonable to obtain a follow-up visit within 1 to 2 weeks to re-evaluate
I will change her steroid regiment and inhaler therapy to see if reducing her albuterol usage would help decrease her sinus tachycardia
Will need outpatient pulmonary evaluation in our office for PFTs and 6MWT
Reviewed with patient
Can likely assess for discharge planning today
Diagnostic Data
Chest X-Ray: 10/08/24- No acute cardiopulmonary process.
08/09/22- No acute cardiopulmonary process.
CT Scan:
Echo: 08/07/24- Normal biventricular size and systolic function without regional wall motion abnormality. Estimated LVEF 60-65%. No significant valve disease. Compared to 04/04/16: no significant change.
PFT's:
Reports and relevant images were personally reviewed.
Total time spent on this consultation _45__ minutes which includes review of history, physical exam, medications, laboratory data, personal review of imaging, extensive review of outpatient records, discussion with care team and respiratory therapy.
Subjective Data
-
Date of Service:
Date of Service: October 13, 2024
Chief Complaint: Pulmonary Follow Up
Subjective:
No new complaints, feels her SOB is better but just feels tired
She is ready to go home
Objective Data
Data Reviewed
Vital Signs / I&O / Oxygen:
Vital Signs
Temp Pulse Resp BP Pulse Ox
98.5 F 120 20 125/80 96
10/13/24 11:00 10/13/24 11:00 10/13/24 11:00 10/13/24 11:00 10/13/24 11:00
Intake and Output
10/12/24 10/13/24 10/14/24
06:59 06:59 06:59
Intake Total 2480 / 2480 1919
Balance 2480 / 2480 1919 / 1919
SaO2 96
Physical Exam
General: Comfortable and Other (NAD)
HEENT: Normocephalic, Anicteric and Moist Mucous Membranes
Cardiovascular: S1-S2 and Regular Rhythm
Respiratory: Clear and Non-Labored Respirations
GI: Soft, Distended and Non Tender
Neurology: Awake, Alert, Oriented and No Motor Deficits
Skin: Warm, Dry and Good Color
Labs/Micro/Reports
Lab Data
10/13/24 05:39
10/13/24 05:39
Microbiology
10/08/24 19:25 Urine Urine Culture - Final
--- NOTE | 2024-10-13 13:47 | W.PN.OBG.DWH ---
Today's Communication / Plan
-
Continue with q shift NST
Discharge per Medical service
Patient instructed to make follow up Ob appointment next week
Assessment/Plan
-
IUP at 30 2/7 wks-stable
Asthma-improved
Pneumonia-on antibiotics, feels better.
Subjective Data
-
Pt feeling better, hopes to go home today. Notes good FM. denies abd pain, SROM/lof or bldg
Objective Data
-
Laboratory Results
10/13/24 05:39
10/13/24 05:39
Vital Signs
Temp Pulse Resp BP Pulse Ox
98.5 F 120 18 125/80 96
A 10/13/24 11:00 10/13/24 11:33 10/13/24 11:33 10/13/24 11:00 10/13/24 11:00
Abdomen-gravid, nontender at appropriate FH
extremities-no calf pain
--- NOTE | 2024-10-13 14:08 | PTCARENOTE ---
NST done, Reactive. FHR @ 150 with accels noted. No decelsn noted at this time. Cat 1 strip.
[2024-10-13 15:00] VITALS: BP 124/70
--- NOTE | 2024-10-13 15:02 | W.DCSUMMARY ---
Discharge Summary
Discharge Data
Date of Admission: 10/08/24
Date of Discharge: 10/13/24
-
Pending Results: No
Hospital Course
Discharge diagnosis:
Acute asthma exacerbation
Strep pneumoniae pneumonia
Intrauterine at 30 weeks gestation
Consults: Pulmonology, cardiology, ID, OB
Chest x-ray:
Faint opacity in the right lung base on the PA projection. In the appropriate clinical setting, a mild pneumonitis/pneumonia could be considered.
Hospital course:
29-year-old female with a past medical history of asthma who is currently 30 weeks was admitted for acute asthma exacerbation secondary to strep pneumoniae pneumonia. Patient was seen in conjunction with pulmonology, cardiology, ID, and
OB. She was treated with Rocephin, azithromycin, IV steroids, bronchodilators.
After several days, patient's shortness of breath improved dramatically. Pulmonology transitioned her to a prednisone taper, and budesonide inhalers. She is medically stable for discharge on prednisone taper, budesonide inhaler, cefdinir, and
azithromycin. She needs to follow-up with her OB in 1 week, and pulmonology in 1 week as well.
Disposition: Home self-care
Discharge planning: Required 39
Discharge Plan
-
Patient Disposition: Home (Routine Discharge)
Discharge Diagnosis/Procedures: Acute asthma exacerbation, intrauterine third trimester
Condition: Good
Diet: Regular
Activity: As tolerated
Driving Restrictions: As prior to admission
Referrals:
Marisol London DO [Active, Pulmonary Medicine] - in one to two weeks
Referral Note: PFT
Yadira Lozano CRNP [Family Provider, General] - in one week
Prescriptions:
New
azithromycin 250 mg Tablet
500 mg PO QPM 6 Days Qty: 12 0RF
budesonide 0.5 mg/2 mL Suspension For Nebulization
0.5 mg inhalation R BID Qty: 60 0RF
WesTab Plus 27 mg iron- 1 mg Tablet
1 tab PO DAILY Qty: 30 0RF
prednisone 10 mg tablet
10 mg PO .TAPER Qty: 30 0RF
Rx Instructions:
Take 40mg daily x3days, 30mg daily x3days,
20mg daily x3days, 10mg daily x3days.
cefdinir 300 mg capsule
300 mg PO Q12H 6 Days Qty: 12 0RF
ipratropium-albuterol 0.5 mg-3 mg(2.5 mg base)/3 mL Solution For Nebulization
3 ml inhalation R Q4HPRN PRN (Reason: shortness of breath/wheeze) Qty: 60 0RF
Continued
albuterol sulfate 90 mcg/actuation Hfa Aerosol Inhaler
2 puff INHALATION R Q6HPRN PRN (Reason: sob)
aspirin 81 mg Tablet
81 mg PO DAILY
Discharge Orders:
Discharge Patient (As Directed); Ordered 10/13/24
Ordered By: Dong Leggett
Discharge Date and Time
Print Language: BURMESE
--- NOTE | 2024-10-13 15:48 | CM ---
Pt is cleared for discharge today. No needs for discharge.
Plan: Discharge to home with no identified needs.
== END 2024-10-13 16:28 | disposition home or self-care (01) | DRG 202 ==
LOC: 3 WEST ACU 15:11
PROVIDERS: Hospitalist; Nurse Practitioner Gerontology; Physician Assistant Medical; ADMITTING PHYSICIAN Internal Medicine; ATTENDING PHYSICIAN Family Medicine; CONSULT PHYSICIAN Internal Medicine; CONSULT PHYSICIAN Internal Medicine Cardiovascular Disease; CONSULT PHYSICIAN Obstetrics & Gynecology; EMERGENCY PHYSICIAN Emergency Medicine; FAMILY PHYSICIAN Nurse Practitioner Adult Health; OTHER PHYSICIAN Internal Medicine Infectious Disease
DX: J45.901 Unspecified asthma with (acute) exacerbation (principal); J13 Pneumonia due to Streptococcus pneumoniae; O14.93 Unspecified pre-eclampsia, third trimester; O99.513 Diseases of the respiratory system complicating pregnancy, third trimester; Z3A.31 31 weeks gestation of pregnancy; K21.9 Gastro-esophageal reflux disease without esophagitis; O99.613 Diseases of the digestive system complicating pregnancy, third trimester; Z79.82 Long term (current) use of aspirin; K58.9 Irritable bowel syndrome, unspecified; O09.293 Supervision of pregnancy with other poor reproductive or obstetric history, third trimester; O21.2 Late vomiting of pregnancy; O99.013 Anemia complicating pregnancy, third trimester; Z79.899 Other long term (current) drug therapy; Z80.7 Family history of other malignant neoplasms of lymphoid, hematopoietic and related tissues; Z82.5 Family history of asthma and other chronic lower respiratory diseases; Z86.14 Personal history of Methicillin resistant Staphylococcus aureus infection; Z11.52 Encounter for screening for COVID-19
CPT/HCPCS: 71046; 76805; 80048; 80053; 81003; 81015; 82607; 82728; 82962; 83540; 83550; 84443; 85025; 85027; 87086; 87449; 87811; 87899; 93005; 93308; 94640; 94644; 96361; 96374; 96375; 99284

== ENCOUNTER → 2024-12-07 13:37 | Outpatient (REF) | payer BC, SELFPAY ==
--- NOTE | 2024-12-03 15:26 | PN.DIAED08 ---
Patient Call Notes
- Patient Call Notes
Evaluated By: Registered Nurse
Patient Note Types: Educator initiated call
Notes:
12/03/2024 GESTATIONAL DIABETES CONSULT
Leonarda has appointment for GSD consultation on 12/07/2024. She states that per her insurance the Dexcom CGM is covered if medically necessary. I provided education that we can submit a prescription for the Dexcom CGM but it often gets rejected, and
we can also order an order for glucometer, test strips, and lancets to avoid any delay. She agreed and verbalized understanding.
Her JULI is 12/21/2024, she states that she did not get her OGTT earlier because she was on steroids for bacterial PNA and knew her glucose would be elevated. Her baby is measuring very large at 99th percentile. I asked her to start testing her
glucose RADHA, we need fasting and 2 hours post prandial all meals. 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 I explained it's important to eat regularly regardless of the time of day. She verbalized understanding.
--- NOTE | 2024-12-07 11:10 | PN.DIAED06 ---
Meal Plan - Gestational
- Breakfast
Gestational Diabetes Meal Plan Name: 1800 calories
Breakfast - Total Carbohydrate (grams): 30 (1 carb serving = 15 g)
Breakfast - Starch Carbohydrate: 1 (carbs: starch, fruit, milk/yogurt)
Breakfast - Fruit Carbohydrate: 0 (no fruit or juice before noon)
Breakfast - Milk Carbohydrate: 1
Breakfast - Nonstarchy Vegetables: Yes
Breakfast - Meat/Protein: 1
Breakfast - Fat: 2
- Morning Snack
Morning Snack - Total Carbohydrate (grams): 30
Morning Snack - Starch Carbohydrate: 1
Morning Snack - Fruit Carbohydrate: 0 (no fruit or juice before noon)
Morning Snack - Milk Carbohydrate: 1
Morning Snack - Nonstarchy Vegetables: Yes
Morning Snack - Meat/Protein: 0.5
Morning Snack - Fat: 0
- Lunch
Lunch - Total Carbohydrate (grams): 45
Lunch - Starch Carbohydrate: 2
Lunch - Fruit Carbohydrate: 1
Lunch - Milk Carbohydrate: 0
Lunch - Nonstarchy Vegetables: Yes
Lunch - Meat/Protein: 2
Lunch - Fat: 1
- Afternoon Snack
Afternoon Snack - Total Carbohydrate (grams): 30
Afternoon Snack - Starch Carbohydrate: 1
Afternoon Snack - Fruit Carbohydrate: 1
Afternoon Snack - Milk Carbohydrate: 0
Afternoon Snack - Nonstarchy Vegetables: Yes
Afternoon Snack - Meat/Protein: 1
Afternoon Snack - Fat: 0
- Dinner
Dinner - Total Carbohydrate (grams): 45
Dinner - Starch Carbohydrate: 2
Dinner - Fruit Carbohydrate: 0
Dinner - Milk Carbohydrate: 1
Dinner - Nonstarchy Vegetables: Yes
Dinner - Meat/Protein: 2
Dinner - Fat: 2
- Evening Snack
Evening Snack - Total Carbohydrate (grams): 30
Evening Snack - Starch Carbohydrate: 1
Evening Snack - Fruit Carbohydrate: 0
Evening Snack - Milk Carbohydrate: 1
Evening Snack - Nonstarchy Vegetables: Yes
Evening Snack - Meat/Protein: 1
Evening Snack - Fat: 1
--- NOTE | 2024-12-07 12:54 | PN.DE ---
Diabetes Education
- -
12/07/2024 GESTATIONAL DIABETES CONSULTATION
Met with Leonarda and her mother today for medical nutrition therapy. She has an JULI of 12/21/2024.
She was previously on steroids for 3 weeks s/p bacterial PNA and asthma, she did not complete an OGTT at this time because she knew her glucose would be elevated. She states while she was taking steroids, she nor any provider discussed checking her
blood sugar. She has a meeting to discuss her ultrasound with perinatology on 12/09/2024. She states they may decide to induce next week because she will be 39 weeks gestation, baby is measuring in 98th percentile and the belly is bigger
than the head which puts baby at risk for shoulder distocia.
She states she had pre-eclampsia with prior pregnancies, treated with ASA.
Explained glucose metabolism in body and what occurs during to cause increase blood sugar. Discussed importance of keeping BS well controlled to avoid complications to the baby during and after (macrosomia, hypoglycemia). Explained
to Leonarda that she is at increased risk of developing T2DM in the future.
Discussed macronutrients, provided with 1800cal GDM meal plan. Educated on importance of eating 3 meals and 3 snacks, spread out throughout the day. Discussed physical activity recommendations of 30 minutes per day, she has not been exercising.
Encouraged walking, especially after mealsto help lower post prandial glucose.
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 She is wearing a Dexcom OTC CGM from her sister in law, just placed yesterday and she states she is to wait a full 24 hours for calibration. She compared the results to a fingerstick and it was only 2
points difference. Her BS has not been > 100 mg/dL.
She is aware to test FBS and 2 hr pp each meal. Expected results for FBS <95 mg/dL and 2 hr pp <120 mg/dL. Log sheet provided for her to record results, she will send a 4-day meal log with all her FBG and 2hr Post prandial glucose numbers to this
office for review. In addition, she will send all her glucose readings to [facility] every Friday. Possible inducement next week at 39 weeks.
She verbalized understanding, and was encouraged to reach out should she require insulin.
== END ==
LOC: DES 13:37
PROVIDERS: ATTENDING PHYSICIAN Student in an Organized Health Care Education/Training Program
DX: O24.419 Gestational diabetes mellitus in pregnancy, unspecified control (principal)
CPT/HCPCS: 99078

== ENCOUNTER 2024-12-08 03:13 | Inpatient (IN) | payer BC, SELFPAY ==
[2024-12-08 03:29] VITALS: BMI 36.6
[2024-12-08 03:30] VITALS: BP 135/79
[2024-12-08] MEDS: LR 1000 IV ×2 (03:35→06:15)
[2024-12-08 03:36] LABS: Glucose - Point of Care 105 mg/dl (70-99)
[2024-12-08 03:50] LABS: Hematocrit 32.9 % (37.0-47.0); Hemoglobin 11.4 g/dL (12.0-16.0); Mean Corp Hgb Conc. 34.7 g/dL (33.0-37.0); Mean Corpuscular Volume 85.2 fL (81.0-99.0); Nucleated Red Blood Cells % 0 %; Platelet Count 279 10^3/uL (130-400); Red Cell Dist. Width 13.4 % (11.5-14.5)
[2024-12-08] MEDS: SUBLIMAZE 100 MCG EPIDURAL (04:20)
[2024-12-08] MEDS: FENTANYL/BUPIVACAINE 100 EPIDURAL ×2 (04:20→10:24)
[2024-12-08 06:07] LABS: ALT (SGPT) 24 U/L (0-35); AST (SGOT) 53 U/L (14-36); Albumin 3.7 g/dl (3.5-5.0); Alkaline Phosphatase 242 U/L (38-126); Blood Urea Nitrogen 12 mg/dl (7-17); Calcium 9.4 mg/dl (8.4-10.2); Carbon Dioxide 18 mmol/L (22-30); Chloride 108 mmol/L (98-107); Estimated Creatinine Clearance > 125 ml/min; Glucose 90 mg/dl (70-99); Potassium 4.1 mmol/L (3.5-5.1); Sodium 133 mmol/L (135-145); Total Protein 6.8 g/dl (6.3-8.2); eGFR > 60.00
[2024-12-08 08:04] LABS: Glucose - Point of Care 99 mg/dl (70-99)
[2024-12-08] MEDS: PITOCIN 30 UNITS/NSS 500 ML IV (11:14)
[2024-12-08] MEDS: MOTRIN 600 MG PO ×2 (13:03→19:58)
[2024-12-08] MEDS: COLACE 100 MG PO (19:41)
[2024-12-09] MEDS: MOTRIN 600 MG PO ×3 (04:36→19:25)
[2024-12-09 04:38] LABS: Hematocrit 30.2 % (37.0-47.0); Hemoglobin 10.4 g/dL (12.0-16.0)
[2024-12-09] MEDS: COLACE 100 MG PO (07:55)
[2024-12-09] MEDS: FEOSOL PO (07:56)
[2024-12-09] MEDS: TYLENOL 650 MG PO ×2 (14:10→19:25)
[2024-12-09] MEDS: COLACE PO (19:28)
[2024-12-10] MEDS: TYLENOL 650 MG PO ×3 (00:01→11:25)
[2024-12-10] MEDS: MOTRIN 600 MG PO ×2 (02:14→08:08)
[2024-12-10] MEDS: FEOSOL 325 MG PO (08:08)
[2024-12-10] MEDS: COLACE 100 MG PO (08:08)
[2024-12-10 13:16] LABS: Syphilis/T. pallidum Ab Reflex Negative (Negative)
== END 2024-12-10 15:00 | disposition home or self-care (01) | DRG 807 ==
LOC: LDRP 03:13
PROVIDERS: Obstetrics & Gynecology; ADMITTING PHYSICIAN Obstetrics & Gynecology
PROC: 10907ZC Drainage of Amniotic Fluid, Therapeutic from Products of Conception, Via Natural or Artificial Opening (ICD-10-PCS; 2024-12-08)
PROC: 10E0XZZ Delivery of Products of Conception, External Approach (ICD-10-PCS; 2024-12-08)
PROC: 4A1HXCZ Monitoring of Products of Conception, Cardiac Rate, External Approach (ICD-10-PCS; 2024-12-08)
DX: O99.52 Diseases of the respiratory system complicating childbirth (principal); Z37.0 Single live birth; O69.81X0 Labor and delivery complicated by cord around neck, without compression, not applicable or unspecified; O24.420 Gestational diabetes mellitus in childbirth, diet controlled; O99.214 Obesity complicating childbirth; Z3A.38 38 weeks gestation of pregnancy; J45.909 Unspecified asthma, uncomplicated; Z79.899 Other long term (current) drug therapy; Z79.82 Long term (current) use of aspirin
CPT/HCPCS: 80053; 82962; 85014; 85018; 85025; 86780; 86850; 86870; 86900; 86901; 94640

== ENCOUNTER → 2025-01-13 10:32 | Outpatient (REF) | payer BC, SELFPAY | LOC: RAD 10:32 | PROVIDERS: ATTENDING PHYSICIAN Nurse Practitioner Adult Health; FAMILY PHYSICIAN Nurse Practitioner Adult Health | DX: J18.9 Pneumonia, unspecified organism (principal) | CPT/HCPCS: 71046 ==

== ENCOUNTER → 2025-02-15 09:14 | Outpatient (REF) | payer BC, SELFPAY | LOC: DHSLP 09:14 | PROVIDERS: ATTENDING PHYSICIAN Internal Medicine; FAMILY PHYSICIAN Nurse Practitioner Adult Health | DX: G47.30 Sleep apnea, unspecified (principal); R06.83 Snoring | CPT/HCPCS: 95800 ==